=== PATIENT | female | born 1990 | race Hispanic/Latino ===

== ENCOUNTER 2022-05-15 13:20 | Emergency (ER) | payer BC ==
--- OUTSIDE RECORDS SUMMARY | 2022-05-15 13:30 | XMS REPORT | Continuity of Care Document ---
:1990 Author Organization [facility] t Address [address] [place] [address] Dr[address] Whipple [address] [place] [id number] Care Team Providers Name Role Phone Micheal CHRISTIANSON, Logan Go Primary Care Physician Kamille Barriga Attending Clinician [phone] KAMILLE MCKEON Attending Clinician Unavailable FIDELIA BEASLEY Attending Clinician Unavailable Fidelia Tesfaye Attending Clinician SHANNON VIDAL Attending Clinician Unavailable RYAN HARDIN Attending Clinician Unavailable Shannon Delgado Attending Clinician Visit, Dayron Nurse Attending Clinician Unavailable Jovanni Harper MD, Jose Luis Attending Clinician Joaquin Watkins MD Attending Clinician Amanda Hardin MD Attending Clinician Risk, Khc-Zcvmk-Ei/High Attending Clinician Unavailable Jillian Perez Attending Clinician Ultrasound, Tiburcio-Mfm Attending Clinician Unavailable Lab, TawannaRmchp Attending Clinician Unavailable Jasbir Stone MD, Shruthi Attending Clinician [phone] SHRUTHI TIRADO Attending Clinician Unavailable Thi Steele MD Attending Clinician Siomara Hernandez Attending Clinician Unavailable James Olivares MD Attending Clinician JAMES OLIVARES Attending Clinician Unavailable 1, [facility] Attending Clinician Unavailable Logan Burton MD Attending Clinician Payers Payer Name Policy Type Policy Number Effective Date Expiration Date S george [employer] - OUT [id number] 2017 OF [facility] 00:00:00 COMMERCIAL [id number] 2019 NON-CONTRACT 00:00:00 GENERIC Problems Condition Condition Condition Status Onset Resolution Last Treating Co mments Source Name Details Category Date Date Treatment Clinician Date Encounter Encounter Disease Active Uni vers for for 9-21 ity of surveillan surveillan 00:[place] ce of ce of 00 Medical contracept contracept Br anch sina pills sina pills Screen for Screen for Disease Active U nivers STD STD 921 ity of (sexually (sexually 00:[place] transmitte transmitte 00 Me dical d disease) d disease) Br anch History of History of Disease Active U nivers anemia anemia 9-21 ity of 00:00: [place] [facility] Disease Active U nivers anemia anemia 5-18 ity of 00:00: [place] [facility] Obesity Obesity Disease Active Univers (BMI (BMI 4-26 ity of 30-39.9) 30-39.9) 00:00: [place] [facility] Branch 39 weeks 39 weeks Disease Active Unive rs gestation gestation 4-26 ity of of of 00:00: [place] 00 [facility] Anemia of Anemia of Disease Active Uni vers mother in mother in 1-13 ity of , , 00:00[place] antepartum antepartum 00 Me dical Branch Abnormal Abnormal Disease Active 2019-04 Unive rs genetic genetic 1-13 ity of test test 00:00: [place] during during 00 Medical Bran ch History of History of Disease Active 2019-04 U nivers toxoplasmo toxoplasmo 1-12 it y of sis sis 00:00: [place] [facility] Urinary Urinary Disease Active 2019-04 Univers tract tract 0-22 ity of infection infection 00:00[place] in mother in mother 00 [facility] during during Branch first first trimester trimester of of BMI BMI Disease Active 2020-0 Univers 25.0-25.9, 25.0-25.9, 9-24 it y of adult adult 00:00: [place] [id number] Medical Branch History of History of Disease Active 2020-0 U nivers -24 ity of section, section, 00:00: [place] unknown unknown 00 Medical scar scar Branch Multiparit Multiparit Disease Active 2020-0 U nivers y y 01-06 ity of 00:00: [place] [address] Medical Branch Supervisio Supervisio Disease Active 2020-0 U nivers n of high n of high 01-06 ity of risk risk 00:00: [place] 00 Medi devora in third in third Branch trimester trimester BMI BMI Disease Active 2020-0 Univers 25.0-25.9, 25.0-25.9, 924 it y of adult adult 00:00: [address] Abnormal Abnormal Disease Active 2020-0 Unive rs urinalysis urinalysis 01-06 it y of 00:00: [place] [address] Medical Branch Nausea/vom Nausea/vom Disease Active 2020-0 U nivers iting in iting in 24 ity of 00:00: [address] Allergies, Adverse Reactions, Alerts Allergy Allergy Status Severity Reaction(s) Onset Inactive Treating Comm ents Source Name Type Date Date Clinician NO KNOWN Drug Active Univers ALLERGIE Class ity of S [facility] Social History Social Habit Start Date Stop Date Quantity Comments Source ASSERTION 2019-11-23 [facility] 00:00:00 [facility] Exposure to 2021-12-24 2022-01-03 Not sure [facility] SARS-CoV-2 00:00:00 13:14:00 [facility] (event) Branch Alcohol intake 2022-01-03 2022-01-03 Ex-drinker [facility] 00:00:00 00:00:00 (finding) [facility] Tobacco use and 2020-01-07 2020-01-07 Smokeless tobacco Un iversity of exposure 00:00:00 00:00:00 non-user [facility] Sex [birth year] At [birth year] Universit y of 00:00:00 00:00:00 [facility] Smoking Status Start Date Stop Date Source Never smoked tobacco [facility] Medications Ordered Filled Start Stop Current Ordering Indication Dosage Frequency Signature Comments Components Source Medication Medication Date Date Medication? Clinician (SIG) Name Name norgestimat Yes [id number] 1{tbl} Take 1 Univers e-ethinyl 9-21 tablet by ity o f estradioL 00:00: mouth [place] 0.18/0.215/ 00 daily. Medica l 0.25 mg-35 Branch mcg (28) tablet norgestimat 0 Yes [id number] 1{tbl} Take 1 Univers e-ethinyl 9-21 tablet by ity o f estradioL 00:00: mouth [place] 0.18/0.215/ 00 daily. Medica l 0.25 mg-35 Branch mcg (28) tablet norgestimat 2021-0 Yes [id number] 1{tbl} Take 1 Univers e-ethinyl 9-21 tablet by ity o f estradioL 00:00: mouth [place] 0.18/0.215/ 00 daily. Medica l 0.25 mg-35 Branch mcg (28) tablet norgestimat 2021-0 Yes [id number] 1{tbl} Take 1 Univers e-ethinyl 9-21 tablet by ity o f estradioL 00:00: mouth [place] 0.18/0.215/ 00 daily. Medica l 0.25 mg-35 Branch mcg (28) tablet norgestimat 0 Yes [id number] 1{tbl} Take 1 Univers e-ethinyl 9-21 tablet by ity o f estradioL 00:00: mouth [place] 0.18/0.215/ 00 daily. Medica l 0.25 mg-35 Branch mcg (28) tablet norethindro 0 Yes [id number] 1{tbl} Take 1 Univers ne 0.35 mg 6-08 tablet by ity of tablet 00:00: mouth [place] 00 daily. Medical Branch norethindro 2020-0 Yes [id number] 1{tbl} Take 1 Univers ne 0.35 mg 6-08 tablet by ity of tablet 00:00: mouth [place] 00 daily. Medical Branch norethindro 2020-0 Yes [id number] 1{tbl} Take 1 Univers ne 0.35 mg 6-08 tablet by ity of tablet 00:00: mouth [place] 00 daily. Medical Branch norethindro 2020-0 Yes [id number] 1{tbl} Take 1 Univers ne 0.35 mg 6-08 tablet by ity of tablet 00:00: mouth [place] 00 daily. Medical Branch norethindro 2021- No [id number] 1{tbl} Take 1 Univers ne 0.35 mg 6-08 -21 tablet by ity of tablet 00:00: 00:00 mouth [place] 00 :00 daily. Medical Branch norethindro 2021- No [id number] 1{tbl} Take 1 Univers ne 0.35 mg 6-08 -21 tablet by ity of tablet 00:00: 00:00 mouth [place] 00 :00 daily. Medical Branch norethindro 2021- No [id number] 1{tbl} Take 1 Univers ne 0.35 mg 6-08 - tablet by ity of tablet 00:00: 00:00 mouth [place] 00 :00 daily. Medical Branch norethindro 2021- No [id number] 1{tbl} Take 1 Univers ne 0.35 mg 6-08 - tablet by ity of tablet 00:00: 00:00 mouth [place] 00 :00 daily. Medical Branch FOLIC ACID 2020- No Take by Uni vers ORAL 5-18 05-18 mouth. ity of 18:43: 00:00 [place] 58 :00 Medical Branch FOLIC ACID Yes Take by [facility] ers ORAL 4-29 mouth. ity of 22:24: [place] 31 Medical Branch 2020- No Take by [facility] rs vit 4-29 04-29 mouth. ity of calc,iron,f 19:14: 00:00 [place] olic 26 :00 Medical ( Branch VITAMIN ORAL) FOLIC ACID Yes Take by [facility] ers ORAL 4-29 mouth. ity of 19:14: [place] 22 Medical Branch Yes [id number] 1{tbl} Take 1 Univers vitamin 4-29 tablet by ity of w/FA tablet 00:00: mouth [place] 00 daily. Medical Branch docusate Yes [id number] 240mg Take 1 U nivers calcium 240 4-29 capsule by it y of mg capsule 00:00: mouth [place] 00 daily as Medical needed for Branch Constipati on. ibuprofen Yes [id number] 600mg Take 1 Univers 600 mg 4-29 tablet by ity of tablet 00:00: mouth [place] 00 every 6 Medical (six) Branch hours as needed (Pain). Take with food or milk. Yes [id number] 1{tbl} Take 1 Univers vitamin 4-29 tablet by ity of w/FA tablet 00:00: mouth [place] 00 daily. Medical Branch docusate Yes [id number] 240mg Take 1 U nivers calcium 240 4-29 capsule by it y of mg capsule 00:00: mouth [place] 00 daily as Medical needed for Branch Constipati on. ibuprofen Yes [id number] 600mg Take 1 Univers 600 mg 4-29 tablet by ity of tablet 00:00: mouth [place] 00 every 6 Medical (six) Branch hours as needed (Pain). Take with food or milk. Yes [id number] 1{tbl} Take 1 Univers vitamin 4-29 tablet by ity of w/FA tablet 00:00: mouth [place] 00 daily. Medical Branch docusate Yes [id number] 240mg Take 1 U nivers calcium 240 4-29 capsule by it y of mg capsule 00:00: mouth [place] 00 daily as Medical needed for Branch Constipati on. ibuprofen Yes [id number] 600mg Take 1 Univers 600 mg 4-29 tablet by ity of tablet 00:00: mouth [place] 00 every 6 Medical (six) Branch hours as needed (Pain). Take with food or milk. Yes [id number] 1{tbl} Take 1 Univers vitamin 4-29 tablet by ity of w/FA tablet 00:00: mouth [place] 00 daily. Medical Branch Yes [id number] 1{tbl} Take 1 Univers vitamin 4-29 tablet by ity of w/FA tablet 00:00: mouth [place] 00 daily. Medical Branch Yes [id number] 1{tbl} Take 1 Univers vitamin 4-29 tablet by ity of w/FA tablet 00:00: mouth [place] 00 daily. Medical Branch Yes [id number] 1{tbl} Take 1 Univers vitamin 4-29 tablet by ity of w/FA tablet 00:00: mouth [place] 00 daily. Medical Branch 2021- No [id number] 1{tbl} Take 1 Univers vitamin 4-29 09-21 tablet by ity of w/FA tablet 00:00: 00:00 [place] 00 :00 daily. Medical Branch 2021- No [id number] 1{tbl} Take 1 Univers vitamin 4-29 09-21 tablet by ity of w/FA tablet 00:00: 00:00 [place] 00 :00 daily. Medical Branch 2021- No [id number] 1{tbl} Take 1 Univers vitamin 4-29 09-21 tablet by ity of w/FA tablet 00:00: 00:00 [place] 00 :00 daily. Medical Branch 2021- No [id number] 1{tbl} Take 1 Univers vitamin 4-29 09-21 tablet by ity of w/FA tablet 00:00: 00:00 [place] 00 :00 daily. [facility] Branch docusate No [id number] 240mg Take 1 Univers calcium 240 4- 06-08 capsule by i ty of mg capsule 00:00: 00:00 mouth once [place] 00 :00 daily as Medical needed for Branch Constipati on. ibuprofen 2020- No [id number] 600mg Take 1 Univers 600 mg 4- 06-08 tablet by ity of tablet 00:00: 00:00 mouth [place] 00 :00 every 6 Medical (six) Branch hours as needed (Pain). Take with food or milk. docusate No [id number] 240mg Take 1 Univers calcium 240 4-29 06-08 capsule by i ty of mg capsule 00:00: 00:00 mouth once [place] 00 :00 daily as Medical needed for Branch Constipati on. ibuprofen No [id number] 600mg Take 1 Univers 600 mg 4-29 06-08 tablet by ity of tablet 00:00: 00:00 mouth [place] 00 :00 every 6 Medical (six) Branch hours as needed (Pain). Take with food or milk. docusate No [id number] 240mg Take 1 Univers calcium 240 4-29 06-08 capsule by i ty of mg capsule 00:00: 00:00 mouth once [place] 00 :00 daily as Medical needed for Branch Constipati on. ibuprofen 2020- No [id number] 600mg Take 1 Univers 600 mg 08-11 tablet by ity of tablet 00:00: 00:00 mouth [place] 00 :00 every 6 Medical (six) Branch hours as needed (Pain). Take with food or milk. HYDROcodone 2020- No [id number] 1{tbl} Take 1 U nivers -acetaminop 08-11 tablet by it y of hen 5-325 00:00: 04:59 mouth [place] mg tablet 00 :00 every 6 Medical (six) Branch hours as needed (Pain scale above 4) for up to 7 days. Do not exceed 3 grams of acetaminop hen in 24 hours. Indication s: acute pain HYDROcodone 2020- No [id number] 1{tbl} Take 1 U nivers -acetaminop 08-11 tablet by it y of hen 5-325 00:00: 04:59 mouth [place] mg tablet 00 :00 every 6 Medical (six) Branch hours as needed (Pain scale above 4) for up to 7 days. Do not exceed 3 grams of acetaminop hen in 24 hours. Indication s: acute pain foLIC acid Yes 1mg 1 mg, Univer s (FOLATE) - Oral, ity of tablet 1 mg 14:00: DAILY, [place] 00 First dose Medical on Sat Branch 08/10/20 at 0900, Until Discontinu ed ferrous Yes 325mg 325 mg, Univer s sulfate - Oral, BID, ity of tablet 325 13:00: First dose [place] mg 00 on Sat Medical 08/10/20 at Branch 0800, Until Discontinu ed, Routine ascorbic Yes 500mg 500 mg, Unive rs acid 4- Oral, TID, ity of (vitamin C) 13:00: First dose [place] (VITAMIN C) 00 on Sat Medica l tablet 500 08/10/20 at [facility] mg 0800, Until Discontinu ed, Routine ibuprofen Yes 600mg 600 mg, Univ ers (IBU) 4- Oral, Q6H, ity of tablet 600 05:00: First dose [place] mg 00 on Sat Medical 08/10/20 at Branch 0000, Until Discontinu ed, Routine rho(D) Yes 300ug 300 mcg, Univer s immune 08-10 Intramuscu ity of globulin 03:50: lar, ONCE, [place] (RHOGAM) 21 For 1 Medical syringe 300 dose, Branch mcg Conditiona l, Routine HYDROcodone Yes 1{tbl} [Order 1 Univers -acetaminop 08-10 Start] ity of hen (NORCO 03:50: Name: [place] 5) 5-325 mg 12 HYDROcodon Me dical tablet 1 e-acetamin Branc h tablet ophen (NORCO 5) 5-325 mg tablet 1 tablet Signed Summary: 1 tablet, Oral, Q6HPRN, Starting Sat08/09/20 at 2250, Until Discontinu ed, Routine, Pain (scale 4-6) [Order 1 End] [Order 2 Start] Name: HYDROcodon e-acetamin ophen (NORCO) 10-325 mg tablet 1 tablet Signed Summary: 1 tablet, Oral, Q6HPRN, Starting Sat08/09/20 at 2250, Until Discontinu ed, Routine, Pain (scale 7-10) [Order 2 End] ondansetron Yes 4mg 4 mg, Slow Univers (ZOFRAN 08-10 IV Push, ity of (PF)) 03:50: Q8HPRN, [place] injection 4 11 Starting Medi devora mg e Branch 08/09/20 at 2250, Until Discontinu ed, Routine, Nausea and Vomiting (N/V) simethicone Yes 160mg 160 mg, Un analy (GAS RELIEF 08-10 Oral, ity of (SIMETHICON 03:50: PC+HSPRN, [place] E)) 11 Starting Medical chewable Tue Branch tablet 160 08/09/20 at mg 2250, Until Discontinu ed, Routine, Gas magnesium Yes 30mL 30 mL, Univer s hydroxide 08-10 Oral, ity of (MILK OF 03:50: QDAILYPRN, [place] MAGNESIA) 11 Starting Medica l 400 mg/5 mL Tue Branch suspension 4/27/21 at 30 mL 2250, Until Discontinu ed, Routine, Constipati on human 0 Yes .5mL 0.5 mL, Univers papillomav 08-10 Intramuscu ity of vac,9-tae(P 03:50: lar, [place] F) 10 ONCE-PRIOR Medical (GARDASIL-9 TO Branch ) syringe DISCHARGE, 0.5 mL 1 dose, Starting [facility] 08/09/20 at 2250, Until Discontinu ed, Routine, Give vaccine prior to discharge diphenhydrA Yes 25mg 25 mg, IV U nivers MINE-0.9 % 08-10 Piggyback, ity of sod.chlr 03:50: Administer Mci[place] as (BENADRYL) 10 over 30 Medica l 25 mg/50 mL Minutes, Bran ch piggyback Q6HPRN, 1 25 mg dose, Starting [facility] 08/09/20 at 2250, Until Discontinu ed, Routine, Itching diphenhydrA Yes 25mg 25 mg, Univ ers MINE 08-10 Oral, ity of (BENADRYL) 03:50: Q6HPRN, [place] tablet 25 10 Starting Medica l mg [facility] 08/09/20 at 2250, Until Discontinu ed, Routine, Sleep, Itching bisacodyL Yes 10mg 10 mg, Univer s (DULCOLAX) 08-10 Rectal, ity of suppository 03:50: QDAILYPRN, [place] 10 mg 10 Starting Medical [facility] 08/09/20 at 2250, Until Discontinu ed, Routine, Constipati on docusate Yes 240mg 240 mg, Unive rs calcium 08-10 Oral, ity of (SURFAK) 03:50: QDAILYPRN, [place] capsule 240 10 Starting Medi devora mg [facility] 08/09/20 at 2250, Until Discontinu ed, Routine, Constipati on morpHINE 30 0 Yes Univer s mg/30 mL 08-10 ity of (fixed 01:30: [place] dose) BEFORE [employer] 00 Medical injection Branch naloxone 0 Yes .1mg 0.1 mg, Univer s (NARCAN) 08-10 Slow IV ity of injection 00:21: Push, [place] 0.1 mg 37 SEE-INSTRU Medical CTIONS, Branch Starting 08/09/20 at 1921, Until Discontinu ed, Routine morpHINE 2 Yes Slow IV Univ ers mg/mL LOAD 08-10 Push, ity of & RESCUE 00:21: Routine [place] INJECTION 37 Medical SYRG Branch sugammadex 2020- No IV Push, Un analy (BRIDION) 08-09 ONCE INTRA ity of injection 23:07: 23:22 PROCEDURE, [place] 00 :15 Starting Medical [facility] Branch 08/09/20 at 1807, Until 08/09/20 at 1822, Routine, Intra-op ondansetron Yes 4mg 4 mg, Slow Univers (ZOFRAN 08-09 IV Push, ity of (PF)) 23:05: PRN, [place] injection 4 31 Starting Medi devora mg [facility] Branch 08/09/20 at 1805, Until Discontinu ed, Routine, Nausea and Vomiting (N/V), PACU naloxone 2020- No .4mg 0.4 mg, Unive rs (NARCAN) 08-09 Slow IV ity of injection 23:05: 23:04 [place], PRN [place] 0.4 mg 31 :31 - SEE Medical INSTRUCTIO Branch NS, Starting Sat08/09/20 at 1805, Until Jennifer 08/11/20 at 1804, Routine, Analgesia Recovery, PACU ondansetron 2020- No Slow IV Un analy (ZOFRAN 08-09 Push, ONCE ity o f (PF)) 22:53: 23:22 INTRA [place] injection 00 :15 PROCEDURE, Medi devora Starting Branch 08/09/20 at 1753, Until Sat08/09/20 at 1822, Routine, Intra-op morpHINE PF 2020- No Epidural, Univers (DURAMORPH- 08-09 ONCE INTRA i ty of PF) 22:49: 23:22 PROCEDURE, [place] injection 00 :15 Starting Medica l [facility] Branch 08/09/20 at 1749, Until Sat08/09/20 at 1822, Routine, Intra-op oxytocin 2020- No Intramuscu Un analy (PITOCIN) 08-09 lar, ONCE ity of injection 22:32: 23:22 INTRA [place] 00 :15 PROCEDURE, Medical Starting Branch [facility] 08/09/20 at 1732, Until 08/09/20 at 1822, Routine, Intra-op carboprost 2020- No Intramuscu Univers (HEMABATE) 08-09 lar, ONCE ity of injection 22:29: 23:22 INTRA [place] 00 :15 PROCEDURE, Medical Starting Branch [facility] 08/09/20 at 1729, Until Sat08/09/20 at 1822, Routine, Intra-op rocuronium 2020- No IV Push, Un analy (ZEMURON) 08-09 ONCE INTRA ity of injection 22:28: 23:22 PROCEDURE, [place] 00 :15 Starting [facility] 08/09/20 at 1728, Until Sat08/09/20 at 1822, Routine, Intra-op methylergon 2020- No Intramuscu Univers ovine 08-09 lar, ONCE ity of (METHERGINE 22:24: 23:22 [place]TRA [place] ) injection 00 :15 PROCEDURE, Me dical Starting Branch [facility] 08/09/20 at 1724, Until Sat08/09/20 at 1822, Routine, Intra-op FENTanyl PF 2020- No Slow IV Un analy (SUBLIMAZE 08-09 Push, ONCE it y of (PF)) 22:24: 23:22 INTRA [place] injection 00 :15 PROCEDURE, [facility] devora Starting Branch [facility] 08/09/20 at 1724, Until Sat08/09/20 at 1822, Routine, Intra-op phenylephri 2020- No Intravenou Univers ne 08-09 s, ONCE ity of (VAZCULEP) 22:23: 23:22 INTRA [place] injection 00 :15 PROCEDURE, [facility] devora Starting Branch [facility] 08/09/20 at 1723, Until Sat08/09/20 at 1822, Routine, Intra-op LR 1000 mL 2020- No IV Univer s + oxytocin 08-09 Infusion, ity of 40 units 40 22:22: 23:22 CONTINUOUS [place] unit/ 1,000 00 :15 PRN, Medical mL IV Starting Branch Solution e 08/09/20 at 1722, Until Sat08/09/20 at 1822, Routine, Intra-op succinylcho 2020- No IV Push, U nivers line 08-09 ONCE INTRA ity of (QUELICIN) 22:19: 23:22 PROCEDURE, [place] injection 00 :15 Starting Medica l [facility] Branch 08/09/20 at 1719, Until Sat08/09/20 at 1822, Routine, Intra-op propofoL IV 2020- No Slow IV Un analy infusion 08-09 Push, ONCE ity of 22:19: 23:22 INTRA [place] 00 :15 PROCEDURE, Medical Starting Branch Sat08/09/20 at 1719, Until Sat08/09/20 at 182, Routine, Intra-op FOLIC ACID Yes Take by [facility] ers ORAL 08-09 mouth. ity of 22:07: [address] Branch Yes Take by [facility] s vit 08-09 mouth. ity of calc,iron,f 22:07: [address] ( Branch VITAMIN ORAL) phenylephri 2020- No Intravenou Univers ne 08-09 s, ity of (VAZCULEP) 22:00: 23:22 CONTINUOUS [place] injection 00 :15 PRN, Medical Starting Branch Sat08/09/20 at 1700, Until Sat08/09/20 at 1822, Routine, Intra-op lactated 2020- No IV Univers ringers IV 08-09 Infusion, ity of infusion 22:00: 23:22 CONTINUOUS [place] 00 :15 PRN, Medical Starting Branch Sat08/09/20 at 1700, Until Sat08/09/20 at 1822, Routine, Intra-op lidocaine 2020- No Epidural, Un analy 2% + 08-09 CONTINUOUS ity of epinephrine 21:56: 23:22 PRN, [place] 1:1000 + 00 :15 Starting Medical fentanyl 50 Tue Branch mcg/mL + 08/09/20 at sodium 1656, bicarb 8.4% Until Sat08/09/20 at 1822, Routine, Intra-op FENTanyl 2 2020- No Intra-op Un analy mcg/mL + 08-09 ity of bupivacaine 18:16: 23:22 [place] 0.1% in NS 00 :15 Medical 250 mL Branch epidural bag FENTanyl 2 2020- No Intra-op Un analy mcg/mL + 08-09 ity of bupivacaine 04:48: 23:22 [place] 0.1% in NS 00 :15 Medical 250 mL Branch epidural bag lidocaine-e 2020- No Intraderma Univers pinephrine 08-09 l, ONCE ity o f (XYLOCAINE 04:42: 23:22 INTRA [place] W/EPINEPHRI 00 :15 PROCEDURE, Pa dical NE) 1.5 Starting Branch %-1:200,000 Mon injection 08/08/20 at 2342, Until 08/09/20 at 1822, Routine, Intra-op FOLIC ACID Yes Take by Univ ers ORAL 4-19 mouth. ity of 15:02: [place] [address] Medical Branch Yes Take by Univer s vit 4-19 mouth. ity of calc,iron,f 15:02: [place] [address] Medical ( Branch VITAMIN ORAL) FOLIC ACID Yes Take by Univ ers ORAL 4-19 mouth. ity of 15:02: [place] [address] Medical Branch Yes Take by Univer s vit 4-19 mouth. ity of calc,iron,f 15:02: [place] [address] Medical ( Branch VITAMIN ORAL) FOLIC ACID Yes Take by Univ ers ORAL 4-19 mouth. ity of 15:02: [place] [address] Medical Branch Yes Take by Univer s vit 4-19 mouth. ity of calc,iron,f 15:02: [facility] 05 Medical ( Branch VITAMIN ORAL) Yes Take by Univer s vit 4-15 mouth. ity of calc,iron,f 15:37: [facility] 12 Medical ( Branch VITAMIN ORAL) Yes Take by Univer s vit 4-05 mouth. ity of calc,iron,f 14:27: [facility] 23 Medical ( Branch VITAMIN ORAL) Yes Take by Univer s vit 4-05 mouth. ity of calc,iron,f 14:27: [place] [address] Medical ( Branch VITAMIN ORAL) Yes Take by Univer s vit 4-05 mouth. ity of calc,iron,f 14:27: [place] [address] Medical ( Branch VITAMIN ORAL) Yes Take by Univer s vit 4-05 mouth. ity of calc,iron,f 14:27: [place] [address] Medical ( Branch VITAMIN ORAL) Yes Take by Univer s vit 4-05 mouth. ity of calc,iron,f 14:27: [place] [address] Medical ( Branch VITAMIN ORAL) Yes Take by Univer s vit 4-05 mouth. ity of calc,iron,f 14:27: [place] [address] Medical ( Branch VITAMIN ORAL) Yes Take by Univer s vit 4-05 mouth. ity of calc,iron,f 14:27: [place] [address] Medical ( Branch VITAMIN ORAL) Yes Take by Univer s vit 4-05 mouth. ity of calc,iron,f 14:27: [place] [id number] Medical ( Branch VITAMIN ORAL) Yes Take by Univer s vit 4-01 mouth. ity of calc,iron,f 15:06: [place] [id number] Medical ( Branch VITAMIN ORAL) Yes Take by Univer s vit 3-22 mouth. ity of calc,iron,f 15:12: [place] [address] Medical ( Branch VITAMIN ORAL) Yes Take by Univer s vit 3-22 mouth. ity of calc,iron,f 15:12: [place] [address] Medical ( Branch VITAMIN ORAL) Yes Take by Univer s vit 3-22 mouth. ity of calc,iron,f 15:12: [place] [address] Medical ( Branch VITAMIN ORAL) Yes Take by Univer s vit 3-22 mouth. ity of calc,iron,f 15:12: [place] [address] Medical ( Branch VITAMIN ORAL) Yes Take by Univer s vit 3-18 mouth. ity of calc,iron,f 14:59: [place] olic 38 Medical ( Branch VITAMIN ORAL) 0 Yes Take by Univer s vit 3-15 mouth. ity of calc,iron,f 14:02: [place] olic 06 Medical ( Branch VITAMIN ORAL) 0 Yes Take by Univer s vit 3-11 mouth. ity of calc,iron,f 18:40: [place] olic 08 Medical ( Branch VITAMIN ORAL) 0 Yes Take by Univer s vit 3-08 mouth. ity of calc,iron,f 15:47: [place] olic 59 Medical ( Branch VITAMIN ORAL) 0 Yes Take by Univer s vit 3-08 mouth. ity of calc,iron,f 15:47: [place] ol 59 Medical ( Branch VITAMIN ORAL) FOLIC ACID 0 Yes Take by Univ ers ORAL 2-23 mouth. ity of 16:33: [place] [address] Medical Branch FOLIC ACID 0 Yes Take by Univ ers ORAL 2-23 mouth. ity of 16:33: [place] [address] Medical Branch FOLIC ACID 0 Yes Take by Univ ers ORAL 2-23 mouth. ity of 16:33: [place] [place] [address] [facility] FOLIC ACID 0 Yes Take by [facility] ORAL 2-23 mouth. ity of 16:33: [place] [address] [facility] FOLIC ACID 0 Yes Take by [facility] ORAL 2-23 mouth. ity of 16:33: [place] [address] [facility] FOLIC ACID 0 Yes Take by [facility] ORAL 2-23 mouth. ity of 16:33: [place] [address] [facility] FOLIC ACID 0 Yes Take by [facility] ORAL 2-23 mouth. ity of 16:33: [place] [address] [facility] FOLIC ACID 0 Yes Take by [facility] ORAL 2-23 mouth. ity of 16:33: [place] [address] [facility] FOLIC ACID 0 Yes Take by [facility] ORAL 2-23 mouth. ity of 16:33: [place] [address] [facility] FOLIC ACID 0 Yes Take by [facility] ORAL 2-23 mouth. ity of 16:33: [place] [address] [facility] FOLIC ACID 2020-0 Yes Take by [facility] ORAL 2-23 mouth. ity of 16:33: [place] [address] [facility] FOLIC ACID 2020-0 Yes Take by [facility] ORAL 2-23 mouth. ity of 16:33: [address] FOLIC ACID Yes Take by [facility] ORAL 2-23 mouth. ity of 16:33: [address] FOLIC ACID Yes Take by [facility] ORAL 2-23 mouth. ity of 16:33: [address] FOLIC ACID Yes Take by [facility] ORAL 2-23 mouth. ity of 16:33: [address] FOLIC ACID Yes Take by [facility] ORAL 2-23 mouth. ity of 16:33: [address] FOLIC ACID Yes Take by [facility] ORAL 2-23 mouth. ity of 16:33: [address] FOLIC ACID Yes Take by [facility] ORAL 2-23 mouth. ity of 16:33: [address] FOLIC ACID Yes Take by [facility] ers ORAL 2-23 mouth. ity of 16:33: [address] FOLIC ACID Yes Take by [facility] ers ORAL 2-23 mouth. ity of 16:33: [address] Yes Take by [facility] vit 2-23 mouth. ity of calc,iron,f 16:33: [address] ( Branch VITAMIN ORAL) ferrous 2020-0 Yes [id number] 325mg Take 1 Un analy sulfate 325 1-13 tablet by ity of mg (65 mg 00:00: mouth 2 [place] iron) 00 (two) Medical tablet times Branch daily. ascorbic 2020-0 Yes [id number] 500mg Take 1 [facility] n[facility] acid, 1-13 tablet by [facility] vitamin C, 00:00: mouth [place] 00 (three) Medical tablet times Branch daily. ferrous 2020-0 Yes [id number] 325mg Take 1 Un analy sulfate 325 1-13 tablet by ity of mg (65 mg 00:00: mouth 2 [place] iron) 00 (two) Medical tablet times Branch daily. ascorbic 202-0 Yes [id number] 500mg Take 1 [facility] acid, 1-13 tablet by [facility] vitamin C, 00:00: mouth [place] 00 (three) Medical tablet times Branch daily. ferrous 2020-0 Yes [id number] 325mg Take 1 Un analy sulfate 325 1-13 tablet by ity of mg (65 mg 00:00: mouth 2 [place] iron) 00 (two) Medical tablet times Branch daily. ascorbic Yes [id number] 500mg Take 1 [facility] n[facility] acid, 1-13 tablet by [facility] of vitamin C, 00:00: mouth [place] 00 (three) Medical tablet times Branch daily. ferrous Yes [id number] 325mg Take 1 Un analy sulfate 325 1-13 tablet by ity of mg (65 mg 00:00: mouth 2 [place] iron) 00 (two) Medical tablet times Branch daily. ascorbic Yes [id number] 500mg Take 1 [facility] acid, 1-13 tablet by [facility] of vitamin C, 00:00: mouth [place] 500 [place] 00 (three) Medical tablet times Branch daily. ferrous Yes [id number] 325mg Take 1 Un analy sulfate 325 1-13 tablet by ity of mg (65 mg 00:00: mouth 2 [place] iron) 00 (two) Medical tablet times Branch daily. ascorbic Yes [id number] 500mg Take 1 [facility] acid, 1-13 tablet by [facility] of vitamin C, 00:00: mouth [place] 00 (three) Medical tablet times Branch daily. ferrous Yes [id number] 325mg Take 1 Un analy sulfate 325 1-13 tablet by ity of mg (65 mg 00:00: mouth 2 [place] iron) 00 (two) Medical tablet times Branch daily. ascorbic Yes [id number] 500mg Take 1 [facility] acid, 1-13 tablet by [facility] of vitamin C, 00:00: mouth [place] 00 (three) Medical tablet times Branch daily. ferrous Yes [id number] 325mg Take 1 Un analy sulfate 325 1-13 tablet by ity of mg (65 mg 00:00: mouth 2 [place] iron) 00 (two) Medical tablet times Branch daily. ascorbic Yes [id number] 500mg Take 1 [facility] acid, 1-13 tablet by [facility] of vitamin C, 00:00: mouth [place] 500 [place] 00 (three) Medical tablet times Branch daily. ferrous Yes [id number] 325mg Take 1 Un analy sulfate 325 1-13 tablet by ity of mg (65 mg 00:00: mouth 2 [place] iron) 00 (two) Medical tablet times Branch daily. ascorbic Yes [id number] 500mg Take 1 [facility] nivers acid, 1-13 tablet by [facility] of vitamin C, 00:00: mouth [place] 500 [place] 00 (three) Medical tablet times Branch daily. ferrous Yes [id number] 325mg Take 1 Un analy sulfate 325 1-13 tablet by ity of mg (65 mg 00:00: mouth 2 [place] iron) 00 (two) Medical tablet times Branch daily. ascorbic Yes [id number] 500mg Take 1 [facility]ivers acid, 1-13 tablet by [facility] of vitamin C, 00:00: mouth [place] 500 [place] 00 (three) Medical tablet times Branch daily. ferrous Yes [id number] 325mg Take 1 Un analy sulfate 325 1-13 tablet by ity of mg (65 mg 00:00: mouth 2 [place] iron) 00 (two) Medical tablet times Branch daily. ascorbic Yes [id number] 500mg Take 1 [facility]ivers acid, 1-13 tablet by [facility] of vitamin C, 00:00: mouth [place] 500 [place] 00 (three) Medical tablet times Branch daily. ferrous Yes [id number] 325mg Take 1 Un analy sulfate 325 1-13 tablet by ity of mg (65 mg 00:00: mouth 2 [place] iron) 00 (two) Medical tablet times Branch daily. ascorbic Yes [id number] 500mg Take 1 [facility] nivers acid, 1-13 tablet by [facility] of vitamin C, 00:00: mouth [place] 500 [place] 00 (three) Medical tablet times Branch daily. ferrous Yes [id number] 325mg Take 1 Un analy sulfate 325 1-13 tablet by ity of mg (65 mg 00:00: mouth 2 [place] iron) 00 (two) Medical tablet times Branch daily. ascorbic Yes [id number] 500mg Take 1 [facility] nivers acid, 1-13 tablet by [facility] of vitamin C, 00:00: mouth [place] 500 [place] 00 (three) Medical tablet times Branch daily. ferrous Yes [id number] 325mg Take 1 Un analy sulfate 325 1-13 tablet by ity of mg (65 mg 00:00: mouth 2 [place] iron) 00 (two) Medical tablet times Branch daily. ascorbic Yes [id number] 500mg Take 1 [facility] acid, 1-13 tablet by [facility] of vitamin C, 00:00: mouth [place] 500 [place] 00 (three) Medical tablet times Branch daily. ferrous Yes [id number] 325mg Take 1 Un analy sulfate 325 1-13 tablet by ity of mg (65 mg 00:00: mouth 2 [place] iron) 00 (two) Medical tablet times Branch daily. ascorbic Yes [id number] 500mg Take 1 [facility] nivers acid, 1-13 tablet by it[facility] of vitamin C, 00:00: mouth [place] 500 [place] 00 (three) Medical tablet times Branch daily. ferrous Yes [id number] 325mg Take 1 Un analy sulfate 325 1-13 tablet by ity of mg (65 mg 00:00: mouth 2 [place] iron) 00 (two) Medical tablet times Branch daily. ascorbic Yes [id number] 500mg Take 1 [facility] nivers acid, 1-13 tablet by [facility] of vitamin C, 00:00: mouth [place] 00 (three) Medical tablet times Branch daily. ferrous Yes [id number] 325mg Take 1 Un analy sulfate 325 1-13 tablet by ity of mg (65 mg 00:00: mouth 2 [place] iron) 00 (two) Medical tablet times Branch daily. ascorbic Yes [id number] 500mg Take 1 [facility] nivers acid, 1-13 tablet by it[facility] of vitamin C, 00:00: mouth 3 [place] 500 [place] 00 (three) Medical tablet times Branch daily. ferrous Yes [id number] 325mg Take 1 Un analy sulfate 325 1-13 tablet by ity of mg (65 mg 00:00: mouth 2 [place] iron) 00 (two) Medical tablet times Branch daily. ascorbic Yes [id number] 500mg Take 1 [facility] nivers acid, 1-13 tablet by ity of vitamin C, 00:00: mouth 3 [place] 00 (three) Medical tablet times Branch daily. ferrous Yes [id number] 325mg Take 1 Un analy sulfate 325 1-13 tablet by ity of mg (65 mg 00:00: mouth 2 [place] iron) 00 (two) Medical tablet times Branch daily. ascorbic Yes [id number] 500mg Take 1 [facility] nivers acid, 1-13 tablet by it[facility] of vitamin C, 00:00: mouth 3 [place] 500 [place] 00 (three) Medical tablet times Branch daily. ferrous Yes [id number] 325mg Take 1 Un analy sulfate 325 1-13 tablet by ity of mg (65 mg 00:00: mouth 2 [place] iron) 00 (two) Medical tablet times Branch daily. ascorbic Yes [id number] 500mg Take 1 [facility] nivers acid, 1-13 tablet by it[facility] of vitamin C, 00:00: mouth 3 [place] 500 [place] 00 (three) Medical tablet times Branch daily. ferrous Yes [id number] 325mg Take 1 Un analy sulfate 325 1-13 tablet by ity of mg (65 mg 00:00: mouth 2 [place] iron) 00 (two) Medical tablet times Branch daily. ascorbic Yes [id number] 500mg Take 1 [facility] nivers acid, 1-13 tablet by it[facility] of vitamin C, 00:00: mouth 3 [place] 500 [place] 00 (three) Medical tablet times Branch daily. ferrous Yes [id number] 325mg Take 1 Un analy sulfate 325 1-13 tablet by ity of mg (65 mg 00:00: mouth 2 [place] iron) 00 (two) Medical tablet times Branch daily. ascorbic Yes [id number] 500mg Take 1 [facility] nivers acid, 1-13 tablet by it[facility] of vitamin C, 00:00: mouth 3 [place] 500 [place] 00 (three) Medical tablet times Branch daily. ferrous Yes [id number] 325mg Take 1 Un analy sulfate 325 1-13 tablet by ity of mg (65 mg 00:00: mouth 2 [place] iron) 00 (two) Medical tablet times Branch daily. ascorbic Yes [id number] 500mg Take 1 [facility] nivers acid, 1-13 tablet by ity of vitamin C, 00:00: mouth [place] 500 [place] 00 (three) Medical tablet times Branch daily. ferrous Yes [id number] 325mg Take 1 Un analy sulfate 325 1-13 tablet by ity of mg (65 mg 00:00: mouth 2 [place] iron) 00 (two) Medical tablet times Branch daily. ascorbic Yes [id number] 500mg Take 1 [facility] nivers acid, 1-13 tablet by ity of vitamin C, 00:00: mouth 3 [place] 500 [place] 00 (three) Medical tablet times Branch daily. ferrous Yes [id number] 325mg Take 1 Un analy sulfate 325 1-13 tablet by ity of mg (65 mg 00:00: mouth 2 [place] iron) 00 (two) Medical tablet times Branch daily. ascorbic Yes [id number] 500mg Take 1 [facility] nivers acid, 1-13 tablet by ity of vitamin C, 00:00: mouth 3 [place] 500 mg 00 (three) Medical tablet times Branch daily. ferrous Yes [id number] 325mg Take 1 Un analy sulfate 325 1-13 tablet by ity of mg (65 mg 00:00: mouth 2 [place] iron) 00 (two) Medical tablet times Branch daily. ascorbic Yes [id number] 500mg Take 1 [facility] nivers acid, 1-13 tablet by ity of vitamin C, 00:00: mouth 3 [place] 500 mg 00 (three) Medical tablet times Branch daily. ferrous Yes [id number] 325mg Take 1 Un analy sulfate 325 1-13 tablet by ity of mg (65 mg 00:00: mouth 2 [place] iron) 00 (two) Medical tablet times Branch daily. ascorbic Yes [id number] 500mg Take 1 U nivers acid, 1-13 tablet by ity of vitamin C, 00:00: mouth 3 [place] 500 [place] 00 (three) Medical tablet times Branch daily. ferrous Yes [id number] 325mg Take 1 Un analy sulfate 325 1-13 tablet by ity of mg (65 mg 00:00: mouth 2 [place] iron) 00 (two) Medical tablet times Branch daily. ascorbic Yes [id number] 500mg Take 1 U nivers acid, 1-13 tablet by ity of vitamin C, 00:00: mouth 3 [place] 500 mg 00 (three) Medical tablet times Branch daily. ferrous Yes [id number] 325mg Take 1 Un analy sulfate 325 1-13 tablet by ity of mg (65 mg 00:00: mouth 2 [place] iron) 00 (two) Medical tablet times Branch daily. ascorbic Yes [id number] 500mg Take 1 U nivers acid, 1-13 tablet by ity of vitamin C, 00:00: mouth 3 [place] 500 mg 00 (three) Medical tablet times Branch daily. ferrous Yes [id number] 325mg Take 1 Un analy sulfate 325 1-13 tablet by ity of mg (65 mg 00:00: mouth 2 [place] iron) 00 (two) Medical tablet times Branch daily. ascorbic Yes [id number] 500mg Take 1 [facility] nivers acid, 1-13 tablet by ity of vitamin C, 00:00: mouth 3 [place] 500 mg 00 (three) Medical tablet times Branch daily. ferrous Yes [id number] 325mg Take 1 Un analy sulfate 325 1-13 tablet by ity of mg (65 mg 00:00: mouth 2 [place] iron) 00 (two) Medical tablet times Branch daily. ascorbic Yes [id number] 500mg Take 1 U nivers acid, 1-13 tablet by ity of vitamin C, 00:00: mouth 3 [place] 500 mg 00 (three) Medical tablet times Branch daily. ferrous Yes [id number] 325mg Take 1 Un analy sulfate 325 1-13 tablet by ity of mg (65 mg 00:00: mouth 2 [place] iron) 00 (two) Medical tablet times Branch daily. ascorbic Yes [id number] 500mg Take 1 [facility] nivers acid, 1-13 tablet by ity of vitamin C, 00:00: mouth 3 [place] 500 mg 00 (three) Medical tablet times Branch daily. ferrous Yes [id number] 325mg Take 1 Un analy sulfate 325 1-13 tablet by ity of mg (65 mg 00:00: mouth 2 [place] iron) 00 (two) Medical tablet times Branch daily. ascorbic Yes [id number] 500mg Take 1 [facility] nivers acid, 1-13 tablet by ity of vitamin C, 00:00: mouth 3 [place] 500 mg 00 (three) Medical tablet times Branch daily. ferrous 2022- No [id number] 325mg Take 1 U nivers sulfate 325 1-13 09-21 tablet by it y of mg (65 mg 00:00: 00:00 mouth 2 [place] iron) 00 :00 (two) Medical tablet times Branch daily. ascorbic 2021- No [id number] 500mg Take 1 [facility] acid, 04-27 tablet by ity of vitamin C, 00:00: 00:00 mouth 3 [place] 500 mg 00 :00 (three) Medical tablet times Branch daily. ferrous 2021- No [id number] 325mg Take 1 U nivers sulfate 325 04-27 tablet by it y of mg (65 mg 00:00: 00:00 mouth 2 [place] iron) 00 :00 (two) Medical tablet times Branch daily. ascorbic 2021- No [id number] 500mg Take 1 [facility] acid, 04-27 tablet by ity of vitamin C, 00:00: 00:00 mouth 3 [place] 500 mg 00 :00 (three) Medical tablet times Branch daily. ferrous 2021- No [id number] 325mg Take 1 U nivers sulfate 325 04-27 tablet by it y of mg (65 mg 00:00: 00:00 mouth 2 [place] iron) 00 :00 (two) Medical tablet times Branch daily. ascorbic 2021- No [id number] 500mg Take 1 [facility] acid, 04-27 tablet by ity of vitamin C, 00:00: 00:00 mouth 3 [place] 500 mg 00 :00 (three) Medical tablet times Branch daily. ferrous 2021- No [id number] 325mg Take 1 U nivers sulfate 325 04-27 tablet by it y of mg (65 mg 00:00: 00:00 mouth 2 [place] iron) 00 :00 (two) Medical tablet times Branch daily. ascorbic 2021- No [id number] 500mg Take 1 [facility] acid, 04-27 tablet by ity of vitamin C, 00:00: 00:00 mouth 3 [place] 500 mg 00 :00 (three) Medical tablet times Branch daily. Yes Take by [employer] vit 1-12 mouth. ity of calc,iron,f 15:39: [place] [address] [facility] ( Branch VITAMIN ORAL) Yes Take by [employer] [facility] vit 1-12 mouth. ity of calc,iron,f 15:39: [place] [address] Medical ( Branch VITAMIN ORAL) Yes Take by [facility] vit 1-12 mouth. ity of calc,iron,f 15:39: [place] [address] Medical ( Branch VITAMIN ORAL) Yes Take by [facility] s vit 1-12 mouth. ity of calc,iron,f 15:39: [place] [address] Medical ( Branch VITAMIN ORAL) proMETHazin Yes [id number] 25mg Take 1 Univers e 25 mg 1-12 tablet by ity of tablet 00:00: mouth [place] 00 every 4 Medical (four) Branch hours as needed for Nausea and Vomiting (N/V). proMETHazin Yes [id number] 25mg Take 1 [facility] e 25 mg 1-12 tablet by ity of tablet 00:00: mouth [place] 00 every 4 Medical (four) Branch hours as needed for Nausea and Vomiting (N/V). proMETHazin Yes [id number] 25mg Take 1 [facility] e 25 mg 1-12 tablet by ity of tablet 00:00: mouth [place] 00 every 4 Medical (four) Branch hours as needed for Nausea and Vomiting (N/V). proMETHazin Yes [id number] 25mg Take 1 [facility] e 25 mg 1-12 tablet by ity of tablet 00:00: mouth [place] 00 every 4 Medical (four) Branch hours as needed for Nausea and Vomiting (N/V). proMETHazin Yes [id number] 25mg Take 1 [facility] e 25 mg 1-12 tablet by ity of tablet 00:00: mouth [place] 00 every 4 Medical (four) Branch hours as needed for Nausea and Vomiting (N/V). proMETHazin Yes [id number] 25mg Take 1 [facility] e 25 mg 1-12 tablet by ity of tablet 00:00: mouth [place] 00 every 4 Medical (four) Branch hours as needed for Nausea and Vomiting (N/V). proMETHazin 0 Yes [id number] 25mg Take 1 [facility] e 25 mg 1-12 tablet by ity of tablet 00:00: mouth [place] 00 every 4 Medical (four) Branch hours as needed for Nausea and Vomiting (N/V). proMETHazin 0 Yes [id number] 25mg Take 1 [facility] e 25 mg 1-12 tablet by ity of tablet 00:00: mouth [place] 00 every 4 Medical (four) Branch hours as needed for Nausea and Vomiting (N/V). proMETHazin 2020-0 Yes [id number] 25mg Take 1 [facility] e 25 mg 1-12 tablet by ity of tablet 00:00: mouth [place] 00 every 4 Medical (four) Branch hours as needed for Nausea and Vomiting (N/V). proMETHazin 2020-0 Yes [id number] 25mg Take 1 [facility] e 25 mg 1-12 tablet by ity of tablet 00:00: mouth [place] 00 every 4 Medical (four) Branch hours as needed for Nausea and Vomiting (N/V). proMETHazin 2020-0 Yes [id number] 25mg Take 1 [facility] e 25 mg 1-12 tablet by ity of tablet 00:00: mouth [place] 00 every 4 Medical (four) Branch hours as needed for Nausea and Vomiting (N/V). proMETHazin 2020-0 Yes [id number] 25mg Take 1 [facility] e 25 mg 1-12 tablet by ity of tablet 00:00: mouth [place] 00 every 4 Medical (four) Branch hours as needed for Nausea and Vomiting (N/V). proMETHazin 2020-0 Yes [id number] 25mg Take 1 [facility] e 25 mg 1-12 tablet by ity of tablet 00:00: mouth [place] 00 every 4 Medical (four) Branch hours as needed for Nausea and Vomiting (N/V). proMETHazin 2020-0 Yes [id number] 25mg Take 1 [facility] e 25 mg 1-12 tablet by ity of tablet 00:00: mouth [place] 00 every 4 Medical (four) Branch hours as needed for Nausea and Vomiting (N/V). proMETHazin 2020-0 Yes [id number] 25mg Take 1 [facility] e 25 mg 1-12 tablet by ity of tablet 00:00: mouth [place] 00 every 4 Medical (four) Branch hours as needed for Nausea and Vomiting (N/V). proMETHazin 2020-0 Yes [id number] 25mg Take 1 Univers e 25 mg 1-12 tablet by ity of tablet 00:00: mouth [place] 00 every 4 Medical (four) Branch hours as needed for Nausea and Vomiting (N/V). proMETHazin 2020-0 Yes [id number] 25mg Take 1 [facility] e 25 mg 1-12 tablet by ity of tablet 00:00: mouth [place] 00 every 4 Medical (four) Branch hours as needed for Nausea and Vomiting (N/V). proMETHazin 2020-0 Yes [id number] 25mg Take 1 Univers e 25 mg 1-12 tablet by ity of tablet 00:00: mouth [place] 00 every 4 Medical (four) Branch hours as needed for Nausea and Vomiting (N/V). proMETHazin 2020-0 Yes [id number] 25mg Take 1 Univers e 25 mg 1-12 tablet by ity of tablet 00:00: mouth [place] 00 every 4 Medical (four) Branch hours as needed for Nausea and Vomiting (N/V). proMETHazin 2020-0 Yes [id number] 25mg Take 1 Univers e 25 mg 1-12 tablet by ity of tablet 00:00: mouth [place] 00 every 4 Medical (four) Branch hours as needed for Nausea and Vomiting (N/V). proMETHazin 2020-0 Yes [id number] 25mg Take 1 Univers e 25 mg 1-12 tablet by ity of tablet 00:00: mouth [place] 00 every 4 Medical (four) Branch hours as needed for Nausea and Vomiting (N/V). proMETHazin 2020-0 Yes [id number] 25mg Take 1 Univers e 25 mg 1-12 tablet by ity of tablet 00:00: mouth [place] 00 every 4 Medical (four) Branch hours as needed for Nausea and Vomiting (N/V). proMETHazin 2020-0 Yes [id number] 25mg Take 1 [facility] e 25 mg 1-12 tablet by ity of tablet 00:00: mouth [place] 00 every 4 Medical (four) Branch hours as needed for Nausea and Vomiting (N/V). proMETHazin 2020-0 Yes [id number] 25mg Take 1 [facility] e 25 mg 1-12 tablet by ity of tablet 00:00: mouth [place] 00 every 4 Medical (four) Branch hours as needed for Nausea and Vomiting (N/V). proMETHazin 1-0 Yes [id number] 25mg Take 1 [facility] e 25 mg 1-12 tablet by ity of tablet 00:00: mouth [place] 00 every 4 Medical (four) Branch hours as needed for Nausea and Vomiting (N/V). proMETHazin 2020-0 Yes [id number] 25mg Take 1 Univers e 25 mg 1-12 tablet by ity of tablet 00:00: mouth [place] 00 every 4 Medical (four) Branch hours as needed for Nausea and Vomiting (N/V). proMETHazin Yes [id number] 25mg Take 1 Univers e 25 mg 1-12 tablet by ity of tablet 00:00: mouth [place] 00 every 4 Medical (four) Branch hours as needed for Nausea and Vomiting (N/V). proMETHazin Yes [id number] 25mg Take 1 Univers e 25 mg 1-12 tablet by ity of tablet 00:00: mouth [place] 00 every 4 Medical (four) Branch hours as needed for Nausea and Vomiting (N/V). proMETHazin 2020- No [id number] 25mg Take 1 Univers e 25 mg 1-12 04-29 tablet by ity of tablet 00:00: 00:00 mouth [place] 00 :00 every 4 Medical (four) Branch hours as needed for Nausea and Vomiting (N/V). PROMETHAZIN 2019-04 Yes [id number] TAKE 1 [facility] E 25 mg 2-28 TABLET BY ity of tablet 00:00: MOUTH [place] 00 EVERY 4 Medical HOURS Branch NEEDED FOR NAUSEA AND VOMITING PROMETHAZIN 2019-04 Yes [id number] TAKE 1 [facility] E 25 mg 2-28 TABLET BY ity of tablet 00:00: MOUTH [place] 00 EVERY 4 Medical HOURS Branch NEEDED FOR NAUSEA AND VOMITING PROMETHAZIN 2019-04 Yes [id number] TAKE 1 [facility] E 25 mg 2-28 TABLET BY ity of tablet 00:00: MOUTH [place] 00 EVERY 4 Medical HOURS Branch NEEDED FOR NAUSEA AND VOMITING PROMETHAZIN 2019-04 Yes [id number] TAKE 1 [facility] E 25 mg 2-28 TABLET BY ity of tablet 00:00: MOUTH [place] 00 EVERY 4 Medical HOURS Branch NEEDED FOR NAUSEA AND VOMITING PROMETHAZIN 2019-04- No [id number] TAKE 1 [facility] E 25 mg 2-28 01-12 TABLET BY ity of tablet 00:00: 00:00 MOUTH [place] 00 :00 EVERY 4 Medical HOURS Branch NEEDED FOR NAUSEA AND VOMITING PROMETHAZIN 2019-04- No [id number] TAKE 1 [facility] E 25 mg 2-28 01-12 TABLET BY ity of tablet 00:00: 00:00 MOUTH [place] 00 :00 EVERY 4 Medical HOURS Branch NEEDED FOR NAUSEA AND VOMITING PROMETHAZIN 2019-04- No [id number] TAKE 1 [facility] E 25 mg 2-28 01-12 TABLET BY ity of tablet 00:00: 00:00 MOUTH [place] 00 :00 EVERY 4 Medical HOURS Branch NEEDED FOR NAUSEA AND VOMITING FOLIC ACID 2019-04 Yes Take by Univ ers ORAL 1-12 mouth. ity of 14:10: [place] [address] Medical Branch FOLIC ACID 2019-04 Yes Take by [facility] ers ORAL 1-12 mouth. ity of 14:10: [place] [address] Medical Branch FOLIC ACID 2019-04 Yes Take by [facility] ers ORAL 1-12 mouth. ity of 14:10: [place] [address] Medical Branch FOLIC ACID 2019-04 Yes Take by [facility] ers ORAL 1-12 mouth. ity of 14:10: [place] [address] Medical Branch FOLIC ACID 2019-04 Yes Take by [facility] ers ORAL 1-12 mouth. ity of 14:10: [place] [address] Medical Branch FOLIC ACID 2019-04 Yes Take by [facility] ers ORAL 1-12 mouth. ity of 14:10: [place] [address] Medical Branch FOLIC ACID 2019-04 Yes Take by [facility] ers ORAL 1-12 mouth. ity of 14:10: [place] [address] Medical Branch FOLIC ACID 2019-04 Yes Take by [facility] ers ORAL 1-12 mouth. ity of 14:10: [address] Branch FOLIC ACID 2019-04 Yes Take by [facility] ers ORAL 1-12 mouth. ity of 14:10: [place] [address] Medical Branch FOLIC ACID 2019-04 Yes Take by [facility] ers ORAL -12 mouth. ity of 14:10: [place] [address] Medical Branch FOLIC ACID 2019-04 Yes Take by [facility] ers ORAL 1-12 mouth. ity of 14:10: [address] Branch FOLIC ACID 2019-04 Yes Take by [facility] ers ORAL 1-12 mouth. ity of 14:10: [place] [address] Medical Branch FOLIC ACID 2019-04 Yes Take by [facility] ers ORAL 1-12 mouth. ity of 14:10: [place] [address] Medical Branch FOLIC ACID 2019-04 Yes Take by [facility] ers ORAL 1-12 mouth. ity of 14:10: [place] [address] Medical Branch FOLIC ACID 2019-04 Yes Take by [facility] ers ORAL 1-12 mouth. ity of 14:10: [place] [address] Medical Branch 2019-04 Yes Take by [facility] vit 1-12 mouth. ity of calc,iron,f 14:10: [place] [address] Medical ( Branch VITAMIN ORAL) 2019-04 Yes Take by [facility] s vit 1-12 mouth. ity of calc,iron,f 14:10: [place] olic 20 Medical ( Branch VITAMIN ORAL) 2020- Yes Take by [facility] vit 1-12 mouth. ity of calc,iron,f 14:10: [place] [address] Medical ( Branch VITAMIN ORAL) 2020- Yes Take by [facility] vit 1-12 mouth. ity of calc,iron,f 14:10: [place] [address] Medical ( Branch VITAMIN ORAL) 2020 Yes Take by [facility] vit 1-12 mouth. ity of calc,iron,f 14:10: [place] [address] Medical ( Branch VITAMIN ORAL) 2020 Yes Take by [facility] vit 1-12 mouth. ity of calc,iron,f 14:10: [place] [address] Medical ( Branch VITAMIN ORAL) 2020 Yes Take by [facility] vit 1-12 mouth. ity of calc,iron,f 14:10: [place] [address] Medical ( Branch VITAMIN ORAL) 2020 Yes Take by [facility] s vit 1-12 mouth. ity of calc,iron,f 14:10: [place] [address] Medical ( Branch VITAMIN ORAL) 2020 Yes Take by [facility] vit 1-12 mouth. ity of calc,iron,f 14:10: [place] [address] Medical ( Branch VITAMIN ORAL) 2020- Yes Take by [facility] vit 1-12 mouth. ity of calc,iron,f 14:10: [place] [address] Medical ( Branch VITAMIN ORAL) 2020 Yes Take by [facility] vit 1-12 mouth. ity of calc,iron,f 14:10: [place] [address] Medical ( Branch VITAMIN ORAL) cephALEXin 2019-04 2020- No [id number] 500mg Take 1 [facility] (KEFLEX) 0-26 11-06 capsule by ity of 500 mg 00:00: 05:59 mouth 4 [place] capsule 00 :00 (four) Medical times Branch daily for 10 days. cephALEXin 2019-04 2020- No [id number] 500mg Take 1 [facility] (KEFLEX) 0-26 11-06 capsule by ity of 500 mg 00:00: 05:59 mouth 4 [place] capsule 00 :00 (four) Medical times Branch daily for 10 days. cephALEXin 2019-04 2020- No [id number] 500mg Take 1 [facility] (KEFLEX) 0-26 11- capsule by ity of 500 mg 00:00: 05:59 mouth 4 [place] capsule 00 :00 (four) Medical times Branch daily for 10 days. cephALEXin 2019-04 2020- No [id number] 500mg Take 1 [facility] (KEFLEX) 0-10 03- capsule by ity of 500 mg 00:00: 05:59 mouth 4 [place] capsule 00 :00 (four) Medical times Branch daily for 10 days. cephALEXin 2019-04 2020- No [id number] 500mg Take 1 [facility] (KEFLEX) 0-10 03- capsule by ity of 500 mg 00:00: 05:59 mouth 4 [place] capsule 00 :00 (four) Medical times Branch daily for 10 days. cephALEXin 2019-04- No [id number] 500mg Take 1 [facility] (KEFLEX) 0-10 03- capsule by ity of 500 mg 00:00: 05:59 mouth 4 [place] capsule 00 :00 (four) Medical times Branch daily for 10 days. 2019-04 Yes Take by [facility] vit 0-22 mouth. ity of calc,iron,f 14:18: [place] [address] Medical ( Branch VITAMIN ORAL) 2019-04 Yes Take by Un[facility] vit 0-22 mouth. ity of calc,iron,f 14:18: [place] [address] Medical ( Branch VITAMIN ORAL) 2019-04 Yes Take by Un[facility] vit 0-22 mouth. ity of calc,iron,f 14:18: [place] [address] Medical ( Branch VITAMIN ORAL) 2020 Yes Take by Un[facility] vit 0-22 mouth. ity of calc,iron,f 14:18: [place] [id number] Medical ( Branch VITAMIN ORAL) 2020 Yes Take by Un[facility] vit 0-22 mouth. ity of calc,iron,f 14:18: [place] [id number] Medical ( Branch VITAMIN ORAL) 2020 Yes Take by Un[facility] vit 0-22 mouth. ity of calc,iron,f 14:18: [place] [address] Medical ( Branch VITAMIN ORAL) 2020 Yes Take by Un[facility] vit 0-22 mouth. ity of calc,iron,f 14:18: [place] [address] Medical ( Branch VITAMIN ORAL) 2020 Yes Take by [facility] vit 0-22 mouth. ity of calc,iron,f 14:18: [place] [address] Medical ( Branch VITAMIN ORAL) 2019-04 Yes Take by [facility] vit 0-22 mouth. ity of calc,iron,f 14:18: [place] [id number] Medical ( Branch VITAMIN ORAL) 2019-04 Yes Take by Un[facility] vit 0-22 mouth. ity of calc,iron,f 14:18: [address] ( Branch VITAMIN ORAL) FOLIC ACID 2019-04 Yes Take by Univ ers ORAL 0-22 mouth. ity of 14:18: [address] FOLIC ACID 2019-04 Yes Take by Univ ers ORAL 0-22 mouth. ity of 14:18: [address] FOLIC ACID 2019-04 Yes Take by Univ ers ORAL 0-22 mouth. ity of 14:18: [address] FOLIC ACID 2019-04 Yes Take by Univ ers ORAL 0-22 mouth. ity of 14:18: [address] FOLIC ACID 2019-04 Yes Take by Univ ers ORAL 0-22 mouth. ity of 14:18: [address] FOLIC ACID 2019- Yes Take by Univ ers ORAL 0-22 mouth. ity of 14:18: [address] FOLIC ACID 2019-04 Yes Take by Univ ers ORAL 0-22 mouth. ity of 14:18: [address] FOLIC ACID 2019-04 Yes Take by Univ ers ORAL 0-22 mouth. ity of 14:18: [address] FOLIC ACID 2019-04 Yes Take by Univ ers ORAL 0-22 mouth. ity of 14:18: [address] FOLIC ACID 2019-04 Yes Take by Univ ers ORAL 0-22 mouth. ity of 14:18: [address] proMETHazin 2019- Yes [id number] 25mg Take 1 [facility] e 25 mg 0-16 tablet by ity of tablet 00:00: mouth [place] 00 every 4 Medical (four) Branch hours as needed for Nausea and Vomiting (N/V). proMETHazin 2019-04 Yes [id number] 25mg Take 1 [facility] e 25 mg 0-16 tablet by ity of tablet 00:00: mouth [place] 00 every 4 Medical (four) Branch hours as needed for Nausea and Vomiting (N/V). proMETHazin 2019-04 Yes [id number] 25mg Take 1 [facility] e 25 mg 0-16 tablet by ity of tablet 00:00: mouth [place] 00 every 4 Medical (four) Branch hours as needed for Nausea and Vomiting (N/V). proMETHazin 2019- Yes [id number] 25mg Take 1 [facility] e 25 mg 0-16 tablet by ity of tablet 00:00: mouth [place] 00 every 4 Medical (four) Branch hours as needed for Nausea and Vomiting (N/V). proMETHazin 2019-04 Yes [id number] 25mg Take 1 [facility] e 25 mg 0-16 tablet by ity of tablet 00:00: mouth [place] 00 every 4 Medical (four) Branch hours as needed for Nausea and Vomiting (N/V). proMETHazin 2019-04 Yes [id number] 25mg Take 1 [facility] e 25 mg 0-16 tablet by ity of tablet 00:00: mouth [place] 00 every 4 Medical (four) Branch hours as needed for Nausea and Vomiting (N/V). proMETHazin 2019-04 Yes [id number] 25mg Take 1 [facility] e 25 mg 0-16 tablet by ity of tablet 00:00: mouth [place] 00 every 4 Medical (four) Branch hours as needed for Nausea and Vomiting (N/V). proMETHazin 2019-04 Yes [id number] 25mg Take 1 [facility] e 25 mg 0-16 tablet by ity of tablet 00:00: mouth [place] 00 every 4 Medical (four) Branch hours as needed for Nausea and Vomiting (N/V). proMETHazin 2019-04 Yes [id number] 25mg Take 1 [facility] e 25 mg 0-16 tablet by ity of tablet 00:00: mouth [place] 00 every 4 Medical (four) Branch hours as needed for Nausea and Vomiting (N/V). proMETHazin 2019-04 Yes [id number] 25mg Take 1 [facility] e 25 mg 0-16 tablet by ity of tablet 00:00: mouth [place] 00 every 4 Medical (four) Branch hours as needed for Nausea and Vomiting (N/V). proMETHazin 2019- Yes [id number] 25mg Take 1 [facility] e 25 mg 0-16 tablet by ity of tablet 00:00: mouth [place] 00 every 4 Medical (four) Branch hours as needed for Nausea and Vomiting (N/V). proMETHazin 2019-04 Yes [id number] 25mg Take 1 [facility] e 25 mg 0-16 tablet by ity of tablet 00:00: mouth [place] 00 every 4 Medical (four) Branch hours as needed for Nausea and Vomiting (N/V). proMETHazin 2019- Yes [id number] 25mg Take 1 [facility] e 25 mg 0-16 tablet by ity of tablet 00:00: mouth [place] 00 every 4 Medical (four) Branch hours as needed for Nausea and Vomiting (N/V). proMETHazin 2019- Yes [id number] 25mg Take 1 [facility] e 25 mg 0-16 tablet by ity of tablet 00:00: mouth [place] 00 every 4 Medical (four) Branch hours as needed for Nausea and Vomiting (N/V). proMETHazin 2019-04 Yes [id number] 25mg Take 1 [facility] e 25 mg 0-16 tablet by ity of tablet 00:00: mouth [place] 00 every 4 Medical (four) Branch hours as needed for Nausea and Vomiting (N/V). proMETHazin 2019-04 Yes [id number] 25mg Take 1 [facility] e 25 mg 0-16 tablet by ity of tablet 00:00: mouth [place] 00 every 4 Medical (four) Branch hours as needed for Nausea and Vomiting (N/V). proMETHazin 2019-04 Yes [id number] 25mg Take 1 [facility] e 25 mg 0-16 tablet by ity of tablet 00:00: mouth [place] 00 every 4 Medical (four) Branch hours as needed for Nausea and Vomiting (N/V). proMETHazin 2019-04 Yes [id number] 25mg Take 1 [facility] e 25 mg 0-16 tablet by ity of tablet 00:00: mouth [place] 00 every 4 Medical (four) Branch hours as needed for Nausea and Vomiting (N/V). proMETHazin 2019-04 2020- No [id number] 25mg Take 1 [facility] e 25 mg 0-16 12-28 tablet by ity of tablet 00:00: 00:00 mouth [place] 00 :00 every 4 Medical (four) Branch hours as needed for Nausea and Vomiting (N/V). Nitrofurant 2019-2019- No [id number] 100mg Take 1 [facility] oin&Nit. 9-28 10-06 capsule by ity of Macrocryst 00:00: 04:59 mouth 2 [place] (MACROBID) 00 :00 (two) Medical 100 mg times Branch capsule daily for 7 days. Nitrofurant 2019- No [id number] 100mg Take 1 [facility] oin&Nit. 9-06 capsule by ity of Macrocryst 00:00: 04:59 mouth 2 [place] (MACROBID) 00 :00 (two) Medical 100 mg times Branch capsule daily for 7 days. FOLIC ACID 2020-0 Yes Take by Univ ers ORAL 9-24 mouth. ity of 15:38: [address] 2020-0 Yes Take by Univer s vit 9-24 mouth. ity of calc,iron,f 15:38: [address] ( Branch VITAMIN ORAL) FOLIC ACID 2020-0 Yes Take by Univ ers ORAL 9-24 mouth. ity of 15:38: [address] 2020-0 Yes Take by Univer s vit 9-24 mouth. ity of calc,iron,f 15:38: [address] ( Branch VITAMIN ORAL) FOLIC ACID 2020-0 Yes Take by Univ ers ORAL 9-24 mouth. ity of 15:38: [address] 2020-0 Yes Take by Univer s vit 9-24 mouth. ity of calc,iron,f 15:38: [address] ( Branch VITAMIN ORAL) FOLIC ACID 2020-0 Yes Take by Univ ers ORAL 9-24 mouth. ity of 15:38: [address] 2020-0 Yes Take by Univer s vit 9-24 mouth. ity of calc,iron,f 15:38: [address] ( Branch VITAMIN ORAL) FOLIC ACID 2020-0 Yes Take by Univ ers ORAL 9-24 mouth. ity of 15:38: [address] 2020-0 Yes Take by Univer s vit 9-24 mouth. ity of calc,iron,f 15:38: [place] [address] Medical ( Branch VITAMIN ORAL) FOLIC ACID 2020-0 Yes Take by Univ ers ORAL 9-24 mouth. ity of 15:38: [address] 2020-0 Yes Take by Univer s vit 9-24 mouth. ity of calc,iron,f 15:38: [address] ( Branch VITAMIN ORAL) FOLIC ACID 2020-0 Yes Take by Univ ers ORAL 9-24 mouth. ity of 15:38: [address] 2020-0 Yes Take by Univer s vit 9-24 mouth. ity of calc,iron,f 15:38: [place] [address] Medical ( Branch VITAMIN ORAL) FOLIC ACID 2020-0 Yes Take by [facility] ers ORAL 9-24 mouth. ity of 15:38: [place] [id number] Medical Branch 2020-0 Yes Take by [facility] s vit 9-24 mouth. ity of calc,iron,f 15:38: [place] [address] Medical ( Branch VITAMIN ORAL) proMETHazin 2020-0 Yes [id number] 25mg Take 1 [facility] e 25 mg 9-24 tablet by ity of tablet 00:00: mouth [place] 00 every 4 Medical (four) Branch hours as needed for Nausea and Vomiting (N/V). proMETHazin 2020-0 Yes [id number] 25mg Take 1 [facility] e 25 mg 9-24 tablet by ity of tablet 00:00: mouth [place] 00 every 4 Medical (four) Branch hours as needed for Nausea and Vomiting (N/V). proMETHazin 2020-0 Yes [id number] 25mg Take 1 [facility] e 25 mg 9-24 tablet by ity of tablet 00:00: mouth [place] 00 every 4 Medical (four) Branch hours as needed for Nausea and Vomiting (N/V). proMETHazin 2020-0 Yes [id number] 25mg Take 1 [facility] e 25 mg 9-24 tablet by ity of tablet 00:00: mouth [place] 00 every 4 Medical (four) Branch hours as needed for Nausea and Vomiting (N/V). proMETHazin 2020-0 Yes [id number] 25mg Take 1 [facility] e 25 mg 9-24 tablet by ity of tablet 00:00: mouth [place] 00 every 4 Medical (four) Branch hours as needed for Nausea and Vomiting (N/V). proMETHazin 2020-0 Yes [id number] 25mg Take 1 [facility] e 25 mg 9-24 tablet by ity of tablet 00:00: mouth [place] 00 every 4 Medical (four) Branch hours as needed for Nausea and Vomiting (N/V). proMETHazin 2020-0 Yes [id number] 25mg Take 1 [facility] e 25 mg 9-24 tablet by ity of tablet 00:00: mouth [place] 00 every 4 Medical (four) Branch hours as needed for Nausea and Vomiting (N/V). proMETHazin 2020-0 2020- No [id number] 25mg Take 1 [facility] e 25 mg 9-24 10-16 tablet by ity of tablet 00:00: 00:00 mouth [place] 00 :00 every 4 Medical (four) Branch hours as needed for Nausea and Vomiting (N/V). Immunizations Ordered Filled Immunization Date Status Comments [facility] e Immunization Name Name SARS-COV-2 COVID-19 2020-10-12 Completed Unive rsity of PFIZER VACCINE 00:00:00 [facility] SARS-COV-2 COVID-19 2020-10-12 Completed Unive rsity of PFIZER VACCINE 00:00:00 [facility] SARS-COV-2 COVID-19 2020-10-12 Completed Unive rsity of PFIZER VACCINE 00:00:00 [facility] SARS-COV-2 COVID-19 2020-10-12 Completed Unive rsity of PFIZER VACCINE 00:00:00 [facility] SARS-COV-2 COVID-19 2020-10-12 Completed Unive rsity of PFIZER VACCINE 00:00:00 [facility] SARS-COV-2 COVID-19 2020-09-22 Completed Unive rsity of PFIZER VACCINE 00:00:00 [facility] SARS-COV-2 COVID-19 2020-09-22 Completed Unive rsity of PFIZER VACCINE 00:00:00 [facility] SARS-COV-2 COVID-19 2020-09-22 Completed Unive rsity of PFIZER VACCINE 00:00:00 [facility] SARS-COV-2 COVID-19 2020-09-22 Completed Unive rsity of PFIZER VACCINE 00:00:00 [facility] SARS-COV-2 COVID-19 2020-09-22 Completed Unive rsity of PFIZER VACCINE 00:00:00 [facility] TDAP 2020-05-24 Completed University of 00:00:00 [facility] TDAP 2020-05-24 Completed University of 00:00:00 [facility] TDAP 2020-05-24 Completed University of 00:00:00 [facility] TDAP 2020-05-24 Completed University of 00:00:00 [facility] TDAP 2020-05-24 Completed University of 00:00:00 [facility] TDAP 2020-05-24 Completed University of 00:00:00 [facility] TDAP 2020-05-24 Completed University of 00:00:00 [facility] TDAP 2020-05-24 Completed University of 00:00:00 [place] [facility] TDAP 2020-05-24 Completed University of 00:00:00 [place] [facility] TDAP 2020-05-24 Completed University of 00:00:00 [place] [facility] TDAP 2020-05-24 Completed University of 00:00:00 [place] [facility] TDAP 2020-05-24 Completed University of 00:00:00 [place] [facility] TDAP 2020-05-24 Completed University of 00:00:00 [place] [facility] TDAP 2020-05-24 Completed University of 00:00:00 [place] [facility] TDAP 2020-05-24 Completed University of 00:00:00 [place] [facility] TDAP 2020-05-24 Completed University of 00:00:00 [place] [facility] TDAP 2020-05-24 Completed University of 00:00:00 [place] [facility] TDAP 2020-05-24 Completed University of 00:00:00 [place] [facility] TDAP 2020-05-24 Completed University of 00:00:00 [place] [facility] TDAP 2020-05-24 Completed University of 00:00:00 [place] [facility] TDAP 2020-05-24 Completed University of 00:00:00 [place] [facility] TDAP 2020-05-24 Completed University of 00:00:00 [place] [facility] TDAP 2020-05-24 Completed University of 00:00:00 [place] [facility] TDAP 2020-05-24 Completed University of 00:00:00 [place] [facility] TDAP 2020-05-24 Completed University of 00:00:00 [place] [facility] TDAP 2020-05-24 Completed University of 00:00:00 [place] [facility] TDAP 2020-05-24 Completed University of 00:00:00 [place] [facility] TDAP 2020-05-24 Completed University of 00:00:00 [place] [facility] TDAP 2020-05-24 Completed University of 00:00:00 [place] [facility] TDAP 2020-05-24 Completed University of 00:00:00 [place] [facility] TDAP 2020-05-24 Completed University of 00:00:00 [place] [facility] TDAP 2020-05-24 Completed University of 00:00:00 [place] [facility] TDAP 2020-05-24 Completed University of 00:00:00 [place] [facility] TDAP 2020-05-24 Completed University of 00:00:00 [place] [facility] TDAP 2020-05-24 Completed University of 00:00:00 [facility] TDAP 2020-05-24 Completed University of 00:00:00 [facility] PPD (TB) 2020-01-11 Completed University of 00:00:00 [facility] PPD (TB) 2020-01-11 Completed University of 00:00:00 [facility] PPD (TB) 2020-01-11 Completed University of 00:00:00 [facility] PPD (TB) 2020-01-11 Completed University of 00:00:00 [facility] PPD (TB) 2020-01-11 Completed University of 00:00:00 [facility] PPD (TB) 2020-01-11 Completed University of 00:00:00 [facility] PPD (TB) 2020-01-11 Completed University of 00:00:00 [facility] PPD (TB) 2020-01-11 Completed University of 00:00:00 [facility] PPD (TB) 2020-01-11 Completed University of 00:00:00 [facility] PPD (TB) 2020-01-11 Completed University of 00:00:00 [facility] PPD (TB) 2020-01-11 Completed University of 00:00:00 [facility] PPD (TB) 2020-01-11 Completed University of 00:00:00 [facility] PPD (TB) 2020-01-11 Completed University of 00:00:00 [facility] PPD (TB) 2020-01-11 Completed University of 00:00:00 [facility] PPD (TB) 2020-01-11 Completed University of 00:00:00 [facility] PPD (TB) 2020-01-11 Completed University of 00:00:00 [facility] PPD (TB) 2020-01-11 Completed University of 00:00:00 [facility] PPD (TB) 2020-01-11 Completed University of 00:00:00 [facility] PPD (TB) 2020-01-11 Completed University of 00:00:00 [facility] PPD (TB) 2020-01-11 Completed University of 00:00:00 [facility] PPD (TB) 2020-01-11 Completed University of 00:00:00 [facility] PPD (TB) 2020-01-11 Completed University of 00:00:00 [facility] PPD (TB) 2020-01-11 Completed University of 00:00:00 [facility] PPD (TB) 2020-01-11 Completed University of 00:00:00 [facility] PPD (TB) 2020-01-11 Completed University of 00:00:00 [place] [facility] PPD (TB) 2020-01-11 Completed University of 00:00:00 [place] [facility] PPD (TB) 2020-01-11 Completed University of 00:00:00 [place] [facility] PPD (TB) 2020-01-11 Completed University of 00:00:00 [facility] PPD (TB) 2020-01-11 Completed University of 00:00:00 [place] [facility] PPD (TB) 2020-01-11 Completed University of 00:00:00 [facility] PPD (TB) 2020-01-11 Completed University of 00:00:00 [facility] PPD (TB) 2020-01-11 Completed University of 00:00:00 [facility] PPD (TB) 2020-01-11 Completed University of 00:00:00 [facility] PPD (TB) 2020-01-11 Completed University of 00:00:00 [facility] PPD (TB) 2020-01-11 Completed University of 00:00:00 [facility] PPD (TB) 2020-01-11 Completed University of 00:00:00 [facility] PPD (TB) 2020-01-11 Completed University of 00:00:00 [facility] PPD (TB) 2020-01-11 Completed University of 00:00:00 [facility] PPD (TB) 2020-01-11 Completed University of 00:00:00 [facility] PPD (TB) 2020-01-11 Completed University of 00:00:00 [facility] PPD (TB) 2020-01-11 Completed University of 00:00:00 [facility] PPD (TB) 2020-01-11 Completed University of 00:00:00 [facility] PPD (TB) 2020-01-11 Completed University of 00:00:00 [facility] PPD (TB) 2020-01-11 Completed University of 00:00:00 [facility] PPD (TB) 2020-01-11 Completed University of 00:00:00 [facility] PPD (TB) 2020-01-11 Completed University of 00:00:00 [facility] PPD (TB) 2020-01-11 Completed University of 00:00:00 [facility] PPD (TB) 2020-01-11 Completed University of 00:00:00 [facility] PPD (TB) 2020-01-11 Completed University of 00:00:00 [facility] PPD (TB) 2020-01-11 Completed University of 00:00:00 [facility] PPD (TB) 2020-01-11 Completed University of 00:00: [facility] PPD (TB) 2020-01-11 Completed University of 00:00:00 [facility] PPD (TB) 2020-01-11 Completed University of 00:00:00 [facility] PPD (TB) 2020-01-11 Completed University of 00:00:00 [facility] PPD (TB) 2020-01-11 Completed University of 00:00:00 [facility] PPD (TB) 2020-01-11 Completed University of 00:00:00 [facility] PPD (TB) 2020-01-11 Completed University of 00:00:00 [facility] PPD (TB) 2020-01-11 Completed University of 00:00:00 [facility] PPD (TB) 2020-01-11 Completed University of 00:00:00 [facility] PPD (TB) 2020-01-11 Completed University of 00:00:00 [facility] PPD (TB) 2020-01-11 Completed University of 00:00:00 [facility] PPD (TB) 2020-01-11 Completed University of 00:00:00 [facility] PPD (TB) 2020-01-11 Completed University of 00:00:00 [facility] PPD (TB) 2020-01-11 Completed University of 00:00:00 [facility] PPD (TB) 2020-01-11 Completed University of 00:00:00 [facility] PPD (TB) 2020-01-11 Completed University of 00:00:00 [facility] PPD (TB) 2020-01-11 Completed University of 00:00:00 [facility] Influenza Virus 2020-01-07 Completed Universit y of Vaccine Quad .5 mL 00:00:00 [place] [facility] IM 6+ MO Branch Influenza Virus 2020-01-07 Completed Universit y of Vaccine [place] .5 mL 00:00:00 [place] [facility] IM 6+ MO Branch Influenza Virus 2020-01-07 Completed Universit y of Vaccine [place] .5 mL 00:00:00 [place] [facility] IM 6+ MO Branch Influenza Virus 2020-01-07 Completed Universit y of Vaccine [place] .5 mL 00:00:00 [place] [facility] IM 6+ MO Branch Influenza Virus 2020-01-07 Completed Universit y of Vaccine Quad .5 mL 00:00:00 [place] [facility] IM 6+ MO Branch Influenza Virus 2020-01-07 Completed Universit y of Vaccine [place] .5 mL 00:00:00 [place] [facility] IM 6+ MO Branch Influenza Virus 2020-01-07 Completed Universit y of Vaccine [place] .5 mL 00:00:00 [place] [facility] IM 6+ MO Branch Influenza Virus 2020-01-07 Completed Universit y of Vaccine [place] .5 mL 00:00:00 [place] [facility] IM 6+ MO Branch Influenza Virus 2020-01-07 Completed Universit y of Vaccine [place] .5 mL 00:00:00 [place] [facility] IM 6+ MO Branch Influenza Virus 2020-01-07 Completed Universit y of Vaccine [place] .5 mL 00:00:00 [place] [facility] IM 6+ MO Branch Influenza Virus 2020-01-07 Completed Universit y of Vaccine Quad .5 mL 00:00:00 [place] [facility] 6+ MO Branch Influenza Virus 2020-01-07 Completed Universit y of Vaccine [place] .5 mL 00:00:00 [place] [facility] IM 6+ MO Branch Influenza Virus 2020-01-07 Completed Universit y of Vaccine [place] .5 mL 00:00:00 [place] [facility] 6+ MO Branch Influenza Virus 2020-01-07 Completed Universit y of Vaccine [place] .5 mL 00:00:00 [place] [facility] 6+ MO Branch Influenza Virus 2020-01-07 Completed Universit y of Vaccine [place] .5 mL 00:00:00 [place] [facility] 6+ MO Branch Influenza Virus 2020-01-07 Completed Universit y of Vaccine [place] .5 mL 00:00:00 [place] [facility] IM 6+ MO Branch Influenza Virus 2020-01-07 Completed Universit y of Vaccine [place] .5 mL 00:00:00 [place] [facility] IM 6+ MO Branch Influenza Virus 2020-01-07 Completed Universit y of Vaccine [place] .5 mL 00:00:00 [place] [facility] IM 6+ MO Branch Influenza Virus 2020-01-07 Completed Universit y of Vaccine [facility] .5 mL 00:00:00 [place] [facility] IM 6+ MO Branch Influenza Virus 2020-01-07 Completed Universit y of Vaccine [place] .5 mL 00:00:00 [place] [facility] IM 6+ MO Branch Influenza Virus 2020-01-07 Completed Universit y of Vaccine [facility] .5 mL 00:00:00 [place] [facility] IM 6+ MO Branch Influenza Virus 2020-01-07 Completed Universit y of Vaccine Quad .5 mL 00:00:00 [place] [facility] IM 6+ MO Branch Influenza Virus 2020-01-07 Completed Universit y of Vaccine [facility] .5 mL 00:00:00 [place] [facility] IM 6+ MO Branch Influenza Virus 2020-01-07 Completed Universit y of Vaccine [facility] .5 mL 00:00:00 [place] [facility] IM 6+ MO Branch Influenza Virus 2020-01-07 Completed Universit y of Vaccine [facility] .5 mL 00:00:00 [place] [facility] IM 6+ MO Branch Influenza Virus 2020-01-07 Completed Universit y of Vaccine [facility] .5 mL 00:00:00 [place] [facility] IM 6+ MO Branch Influenza Virus 2020-01-07 Completed Universit y of Vaccine [facility] .5 mL 00:00:00 [place] [facility] IM 6+ MO Branch Influenza Virus 2020-01-07 Completed Universit y of Vaccine [facility] .5 mL 00:00:00 [place] [facility] 6+ MO Branch Influenza Virus 2020-01-07 Completed Universit y of Vaccine Quad .5 mL 00:00:00 [place] [facility] 6+ MO Branch Influenza Virus 2020-01-07 Completed Universit y of Vaccine Quad .5 mL 00:00:00 [place] [facility] 6+ MO Branch Influenza Virus 2020-01-07 Completed Universit y of Vaccine Quad .5 mL 00:00:00 [place] [facility] 6+ MO Branch Influenza Virus 2020-01-07 Completed Universit y of Vaccine Quad .5 mL 00:00:00 [place] [facility] 6+ MO Branch Influenza Virus 2020-01-07 Completed Universit y of Vaccine Quad .5 mL 00:00:00 [place] [facility] 6+ MO Branch Influenza Virus 2020-01-07 Completed Universit y of Vaccine Quad .5 mL 00:00:00 [place] [facility] IM 6+ MO Branch Influenza Virus 2020-01-07 Completed Universit y of Vaccine Quad .5 mL 00:00:00 [place] [facility] IM 6+ MO Branch Influenza Virus 2020-01-07 Completed Universit y of Vaccine Quad .5 mL 00:00:00 [place] [facility] IM 6+ MO Branch Influenza Virus 2020-01-07 Completed Universit y of Vaccine Quad .5 mL 00:00:00 [place] [facility] 6+ MO Branch Influenza Virus 2020-01-07 Completed Universit y of Vaccine Quad .5 mL 00:00:00 [place] [facility] IM 6+ MO Branch Influenza Virus 2020-01-07 Completed Universit y of Vaccine Quad .5 mL 00:00:00 [place] [facility] IM 6+ MO Branch Influenza Virus 2020-01-07 Completed Universit y of Vaccine Quad .5 mL 00:00:00 [place] [facility] IM 6+ MO Branch Influenza Virus 2020-01-07 Completed Universit y of Vaccine Quad .5 mL 00:00:00 [place] [facility] IM 6+ MO Branch Influenza Virus 2020-01-07 Completed Universit y of [facility] .5 mL 00:00:00 [facility] Influenza Virus 2020-01-07 Completed [facility] .5 mL 00:00:00 [facility] Influenza Virus 2020-01-07 Completed [facility] .5 mL 00:00:00 [facility] Influenza Virus 2020-01-07 Completed [facility] .5 mL 00:00:00 [facility] Influenza Virus 2020-01-07 Completed [facility] .5 mL 00:00:00 [facility] Influenza Virus 2020-01-07 Completed [facility] .5 mL 00:00:00 [facility] Influenza Virus 2020-01-07 Completed [facility] .5 mL 00:00:00 [facility] Influenza Virus 2020-01-07 Completed [facility] .5 mL 00:00:00 [facility] Influenza Virus 2020-01-07 Completed [facility] .5 mL 00:00:00 [facility] Influenza Virus 2020-01-07 Completed [facility] .5 mL 00:00:00 [facility] Influenza Virus 2020-01-07 Completed [facility] .5 mL 00:00:00 [facility] Influenza Virus 2020-01-07 Completed [facility] .5 mL 00:00:00 [facility] Influenza Virus 2020-01-07 Completed [facility] .5 mL 00:00:00 [facility] Influenza Virus 2020-01-07 Completed [facility] .5 mL 00:00:00 [facility] Influenza Virus 2020-01-07 Completed [facility] .5 mL 00:00:00 [facility] Influenza Virus 2020-01-07 Completed [facility] .5 mL 00:00:00 [facility] Influenza Virus 2020-01-07 Completed [facility] .5 mL 00:00:00 [facility] Influenza Virus 2020-01-07 Completed [facility] .5 mL 00:00:00 [facility] Influenza Virus 2020-01-07 Completed [facility] .5 mL 00:00:00 [facility] Influenza Virus 2020-01-07 Completed [facility] .5 mL 00:00:00 [facility] Influenza Virus 2020-01-07 Completed [facility] .5 mL 00:00:00 [facility] Influenza Virus 2020-01-07 Completed [facility] .5 mL 00:00:00 [facility] Influenza Virus 2020-01-07 Completed [facility] .5 mL 00:00:00 [facility] Influenza Virus 2020-01-07 Completed [facility] .5 mL 00:00:00 [facility] Influenza Virus 2020-01-07 Completed [facility] .5 mL 00:00:00 [facility] Influenza Virus 2020-01-07 Completed [facility] .5 mL 00:00:00 [facility] Influenza Virus 2020-01-07 Completed [facility] .5 mL 00:00:00 [facility] Influenza Virus 2020-01-07 Completed [facility] .5 mL 00:00:00 [facility] Vital Signs Vital Name Observation Time Observation Value Comments Source Systolic blood 2022-01-03 18:14:00 110 mm[Hg] Univer sity of pressure [facility] Diastolic blood 2022-01-03 18:14:00 75 mm[Hg] Unive rsity of pressure [facility] Heart rate 2022-01-03 18:14:00 81 /min [facility] of [facility] Body temperature 2022-01-03 18:14:[address] Univ ersity of [facility] Respiratory rate 2022-01-03 18:14:00 18 /min [facility] Body height 2022-01-03 18:14:00 152.4 cm [facility] Body weight 2022-01-03 18:14:00 59.875 kg [facility] BMI 2022-01-03 18:14:00 25.78 kg/m2 [facility] Systolic blood 2020-09-20 20:34:00 109 mm[Hg] [facility] of pressure [facility] Diastolic blood 2020-09-20 20:34:00 66 mm[Hg] [facility] of pressure [facility] Heart rate 2020-09-20 20:34:00 83 /min [facility] Body temperature 2020-09-20 20:34:[address] [facility] Respiratory rate 2020-09-20 20:34:00 16 /min [facility] Body height 2020-09-20 20:34:00 152.4 cm [facility] Body weight 2020-09-20 20:34:00 64.592 kg [facility] BMI 2020-09-20 20:34:00 27.81 kg/m2 [facility] Systolic blood 2020-08-30 18:28:00 102 mm[Hg] [facility] pressure [facility] Diastolic blood 2020-08-30 18:28:00 61 mm[Hg] [facility] of pressure [facility] Heart rate 2020-08-30 18:28:00 80 /min [facility] Body temperature 2020-08-30 18:28:[address] [facility] Respiratory rate 2020-08-30 18:28:00 16 /min [facility] Body height 2020-08-30 18:28:00 152.4 cm [facility] Body weight 2020-08-30 18:28:00 63.305 kg [facility] BMI 2020-08-30 18:28:00 27.26 kg/m2 [facility] Systolic blood 2020-08-16 19:18:00 118 mm[Hg] [facility] pressure [facility] Diastolic blood 2020-08-16 19:18:00 78 mm[Hg] [facility] of pressure [facility] Heart rate 2020-08-16 19:18:00 103 /min [facility] Body temperature 2020-08-16 19:18:[address] [facility] Respiratory rate 2020-08-16 19:18:00 16 /min [facility] Body height 2020-08-16 19:18:00 152.4 cm [facility] Body weight 2020-08-16 19:18:00 68.692 kg [facility] BMI 2020-08-16 19:18:00 29.58 kg/m2 [facility] Oxygen saturation in 2020-08-09 18:30:00 100 /min [facility] Arterial blood by [facility] Pulse oximetry Branch Systolic blood 2020-08-09 18:30:00 121 mm[Hg] [facility] of pressure [facility] Diastolic blood 2020-08-09 18:30:00 77 mm[Hg] [facility] of pressure [facility] Heart rate 2020-08-09 18:30:00 128 /min [facility] Respiratory rate 2020-08-09 18:30:00 18 /min [facility] Body temperature 2020-08-09 18:00:[address] [facility] Body height 2020-08-08 11:48:00 152.4 cm [facility] Body weight 2020-08-08 11:48:00 71.668 kg [facility] BMI 2020-08-08 11:48:00 30.86 kg/m2 [facility] Systolic blood 2020-08-04 15:09:00 107 mm[Hg] [facility] pressure [facility] Diastolic blood 2020-08-04 15:09:00 74 mm[Hg] [facility] of pressure [facility] Heart rate 2020-08-04 15:09:00 97 /min [facility] Body temperature 2020-08-04 15:09:[address] [facility] Respiratory rate 2020-08-04 15:09:00 16 /min [facility] Body height 2020-08-04 15:09:00 152.4 cm [facility] Body weight 2020-08-04 15:09:00 72.122 kg [facility] BMI 2020-08-04 15:09:00 31.05 kg/m2 [facility] Systolic blood 2020-08-01 15:06:00 113 mm[Hg] [facility] pressure [facility] Diastolic blood 2020-08-01 15:06:00 75 mm[Hg] [facility] of pressure [facility] Heart rate 2020-08-01 15:06:00 101 /min [facility] Body temperature 2020-08-01 15:06:[address] [facility] Respiratory rate 2020-08-01 15:06:00 16 /min [facility] Body height 2020-08-01 15:06:00 152.4 cm [facility] Body weight 2020-08-01 15:06:00 71.578 kg [facility] BMI 2020-08-01 15:06:00 30.82 kg/m2 [facility] Systolic blood 2020-07-28 14:23:00 106 mm[Hg] [facility] pressure [facility] Diastolic blood 2020-07-28 14:23:00 65 mm[Hg] [facility] of pressure [facility] Heart rate 2020-07-28 14:23:00 87 /min [facility] Body temperature 2020-07-28 14:23:[address] [facility] Respiratory rate 2020-07-28 14:23:00 16 /min [facility] Body height 2020-07-28 14:23:00 152.4 cm [facility] Body weight 2020-07-28 14:23:00 71.578 kg [facility] BMI 2020-07-28 14:23:00 30.82 kg/m2 [facility] Systolic blood 2020-07-26 13:17:00 107 mm[Hg] [facility] of pressure [facility] Diastolic blood 2020-07-26 13:17:00 69 mm[Hg] [facility] of pressure [facility] Heart rate 2020-07-26 13:17:00 105 /min [facility] Body temperature 2020-07-26 13:17:[address] [facility] Respiratory rate 2020-07-26 13:17:00 16 /min [facility] Body height 2020-07-26 13:17:00 152.4 cm [facility] Body weight 2020-07-26 13:17:00 70.364 kg [facility] BMI 2020-07-26 13:17:00 30.30 kg/m2 [facility] Systolic blood 2020-07-21 14:32:00 104 mm[Hg] [facility] pressure [facility] Diastolic blood 2020-07-21 14:32:00 71 mm[Hg] [facility] rsity of pressure [facility] Heart rate 2020-07-21 14:32:00 93 /min [facility] Body temperature 2020-07-21 14:32:[address] [facility] Respiratory rate 2020-07-21 14:32:00 16 /min [facility] Body height 2020-07-21 14:32:00 152.4 cm [facility] Body weight 2020-07-21 14:32:00 69.627 kg [facility] BMI 2020-07-21 14:32:00 29.98 kg/m2 [facility] Systolic blood 2020 14:36:00 110 mm[Hg] [facility] Diastolic blood 2020 14:36:00 73 mm[Hg] [facility] pressure [facility] Heart rate 2020 14:36:00 107 /min [facility] Body temperature 2020 14:36:[address] [facility] Respiratory rate 2020 14:36:00 16 /min [facility] Body height 2020 14:36:00 152.4 cm [facility] Body weight 2020 14:36:00 70.421 kg [facility] BMI 2020 14:36:00 30.32 kg/m2 [facility] Systolic blood 2020-07-14 14:55:00 98 mm[Hg] [facility] pressure [facility] Diastolic blood 2020-07-14 14:55:00 67 mm[Hg] [facility] rs[facility] of pressure [facility] Heart rate 2020-07-14 14:55:00 90 /min [facility] Body temperature 2020-07-14 14:55:[address] [facility] Respiratory rate 2020-07-14 14:55:00 16 /min [facility] Body height 2020-07-14 14:55:00 152.4 cm [facility] Body weight 2020-07-14 14:55:00 69.854 kg [facility] BMI 2020-07-14 14:55:00 30.08 kg/m2 [facility] Systolic blood 2020-07-11 14:06:00 105 mm[Hg] [facility] of pressure [facility] Diastolic blood 2020-07-11 14:06:00 70 mm[Hg] [facility]ive rsity of pressure [facility] Heart rate 2020-07-11 14:06:00 102 /min [facility] Body temperature 2020-07-11 14:06:[address] [facility] Respiratory rate 2020-07-11 14:06:00 16 /min [facility] Body height 2020-07-11 14:06:00 152.4 cm [facility] Body weight 2020-07-11 14:06:00 69.655 kg [facility] BMI 2020-07-11 14:06:00 29.99 kg/m2 [facility] Systolic blood 2020-07-07 15:11:00 100 mm[Hg] [facility] of pressure [facility] Diastolic blood 2020-07-07 15:11:00 66 mm[Hg] Unive rsity of pressure [facility] Heart rate 2020-07-07 15:11:00 80 /min [facility] Body temperature 2020-07-07 15:11:[address] [facility] Respiratory rate 2020-07-07 15:11:00 16 /min [facility] Body height 2020-07-07 15:11:00 152.4 cm [facility] Body weight 2020-07-07 15:11:00 69.174 kg [facility] BMI 2020-07-07 15:11:00 29.78 kg/m2 [facility] Systolic blood 2020-07-04 15:22:00 111 mm[Hg] [facility] pressure [facility] Diastolic blood 2020-07-04 15:22:00 65 mm[Hg] [facility]ive rs[facility] of pressure [facility] Heart rate 2020-07-04 15:22:00 98 /min [facility] Body temperature 2020-07-04 15:22:[address] [facility] Respiratory rate 2020-07-04 15:22:00 16 /min [facility] Body height 2020-07-04 15:22:00 152.4 cm [facility] Body weight 2020-07-04 15:22:00 69.31 kg [facility] BMI 2020-07-04 15:22:00 29.84 kg/m2 [facility] Systolic blood 2020-06-30 14:32:00 105 mm[Hg] [facility] pressure [facility] Diastolic blood 2020-06-30 14:32:00 64 mm[Hg] [facility] rs[facility] of pressure [facility] Heart rate 2020-06-30 14:32:00 106 /min [facility] Body temperature 2020-06-30 14:32:[address] [facility] Respiratory rate 2020-06-30 14:32:00 16 /min [facility] Body height 2020-06-30 14:32:00 152.4 cm [facility] Body weight 2020-06-30 14:32:00 69.128 kg [facility] BMI 2020-06-30 14:32:00 29.76 kg/m2 [facility] Systolic blood 2020-06-27 13:53:00 104 mm[Hg] [facility] of pressure [facility] Diastolic blood 2020-06-27 13:53:00 71 mm[Hg] Unive rsity of pressure [facility] Heart rate 2020-06-27 13:53:00 101 /min [facility] Body temperature 2020-06-27 13:53:[address] [facility] Respiratory rate 2020-06-27 13:53:00 16 /min [facility] Body height 2020-06-27 13:53:00 152.4 cm [facility] Body weight 2020-06-27 13:53:00 68.493 kg [facility] BMI 2020-06-27 13:53:00 29.49 kg/m2 [facility] Systolic blood 2020-06-23 18:39:00 107 mm[Hg] Univer [facility] of pressure [facility] Diastolic blood 2020-06-23 18:39:00 65 mm[Hg] Unive rsity of pressure [facility] Heart rate 2020-06-23 18:39:00 103 /min [facility] Body temperature 2020-06-23 18:39:[address] [facility] Respiratory rate 2020-06-23 18:39:00 16 /min [facility] Body height 2020-06-23 18:39:00 152.4 cm [facility] Body weight 2020-06-23 18:39:00 68.295 kg [facility] BMI 2020-06-23 18:39:00 29.40 kg/m2 [facility] Systolic blood 2020-06-20 15:45:00 93 mm[Hg] [facility] of pressure [facility] Diastolic blood 2020-06-20 15:45:00 66 mm[Hg] [facility]ive rsity of pressure [facility] Heart rate 2020-06-20 15:45:00 115 /min [facility] Body temperature 2020-06-20 15:45:[address] [facility] Respiratory rate 2020-06-20 15:45:00 16 /min [facility] Body height 2020-06-20 15:45:00 152.4 cm [facility] Body weight 2020-06-20 15:45:00 67.858 kg [facility] BMI 2020-06-20 15:45:00 29.22 kg/m2 [facility] Systolic blood 2020-06-07 15:21:00 114 mm[Hg] [facility] of pressure [facility] Diastolic blood 2020-06-07 15:21:00 67 mm[Hg] [facility]ive rsity of pressure [facility] Heart rate 2020-06-07 15:21:00 103 /min [facility] Body temperature 2020-06-07 15:21:[address] [facility] Respiratory rate 2020-06-07 15:21:00 16 /min [facility] Body height 2020-06-07 15:21:00 152.4 cm [facility] Body weight 2020-06-07 15:21:00 66.339 kg [facility] BMI 2020-06-07 15:21:00 28.56 kg/m2 [facility] Systolic blood 2020-04-26 15:37:00 104 mm[Hg] [facility] of pressure [facility] Diastolic blood 2020-04-26 15:37:00 69 mm[Hg] Unive rsity of pressure [facility] Heart rate 2020-04-26 15:37:00 108 /min [facility] Body temperature 2020-04-26 15:37:[address] [facility] Respiratory rate 2020-04-26 15:37:00 16 /min [facility] Body height 2020-04-26 15:37:00 152.4 cm [facility] Body weight 2020-04-26 15:37:00 61.009 kg [facility] BMI 2020-04-26 15:37:00 26.27 kg/m2 [facility] Systolic blood 2020-02-25 14:00:00 95 mm[Hg] [facility] of pressure [facility] Diastolic blood 2020-02-25 14:00:00 56 mm[Hg] Unive rsity of pressure [facility] Heart rate 2020-02-25 14:00:00 96 /min [facility] Body temperature 2020-02-25 14:00:[address] [facility] Respiratory rate 2020-02-25 14:00:00 16 /min [facility] Body height 2020-02-25 14:00:00 152.4 cm [facility] Body weight 2020-02-25 14:00:00 60.918 kg [facility] BMI 2020-02-25 14:00:00 26.23 kg/m2 [facility] Systolic blood 2020-02-04 14:16:00 112 mm[Hg] [facility] of pressure [facility] Diastolic blood 2020-02-04 14:16:00 72 mm[Hg] Unive rsity of pressure [facility] Heart rate 2020-02-04 14:16:00 84 /min [facility] Body temperature 2020-02-04 14:16:[address] [facility] Respiratory rate 2020-02-04 14:16:00 16 /min [facility] Body height 2020-02-04 14:16:00 152.4 cm [facility] Body weight 2020-02-04 14:16:00 60.499 kg [facility] BMI 2020-02-04 14:16:00 26.05 kg/m2 [facility] Systolic blood 2020-01-13 13:52:00 116 mm[Hg] [facility] of pressure [facility] Diastolic blood 2020-01-13 13:52:00 77 mm[Hg] Unive rsity of pressure [facility] Heart rate 2020-01-13 13:52:00 97 /min [facility] Body temperature 2020-01-13 13:52:[address] [facility] Respiratory rate 2020-01-13 13:52:00 16 /min [facility] Body height 2020-01-13 13:52:00 152.4 cm [facility] Body weight 2020-01-13 13:52:00 59.506 kg [facility] BMI 2020-01-13 13:52:00 25.62 kg/m2 [facility] Systolic blood 2020-01-11 14:34:00 110 mm[Hg] [facility] of pressure [facility] Diastolic blood 2020-01-11 14:34:00 76 mm[Hg] Unive rsity of pressure [facility] Heart rate 2020-01-11 14:34:00 89 /min [facility] Body temperature 2020-01-11 14:34:[address] [facility] Respiratory rate 2020-01-11 14:34:00 16 /min [facility] Body height 2020-01-11 14:34:00 152.4 cm [facility] Body weight 2020-01-11 14:34:00 59.512 kg [facility] BMI 2020-01-11 14:34:00 25.62 kg/m2 [facility] Systolic blood 2020-01-07 15:28:00 103 mm[Hg] [facility] of pressure [facility] Diastolic blood 2020-01-07 15:28:00 71 mm[Hg] Unive rsity of pressure [facility] Heart rate 2020-01-07 15:28:00 80 /min [facility] Body temperature 2020-01-07 15:28:[address] [facility] Respiratory rate 2020-01-07 15:28:00 16 /min [facility] Body height 2020-01-07 15:28:00 152.4 cm [facility] Body weight 2020-01-07 15:28:00 58.627 kg [facility] BMI 2020-01-07 15:28:00 25.24 kg/m2 [facility] Procedures Procedure Date / Time Performing Clinician Source Performed POCT TEST 2022-01-03 18:20:00 Fidelia Beasley [facility] POCT TEST 2020-09-20 20:40:00 Shannon Vidal [facility] CBC WITH DIFF 2020-08-11 10:41:00 Cherri Hebert [facility] CBC WITH DIFF 2020-08-10 09:11:00 Hemalatha Paulino [facility] CBC WITH DIFF 2020-08-10 02:31:00 Bibi Brewster [place] [facility] SECTION 2020-08-09 21:45:00 Amanda Hardin [facility] CENTRAL NEURAXIAL BLOCK 2020-08-09 04:52:16 Jose Luis Wood [facility] CBC WITH DIFF 2020-08-08 14:00:00 Angelo [facility] HEPATITIS B SURFACE 2020-08-08 14:00:00 Angelo [facility] ANTIGEN [facility] GALV ONLY - SYPHILIS 2020-08-08 14:00:00 Angelo [facility]mit[facility] IGG/IGM [facility] HB ABO GROUPING 2020-08-08 13:40:00 Angelo [facility] RHO (D) IMMUNE GLOBULIN 2020-08-08 13:40:00 Hemalatha Paulino [facility] COVID-19 (ID NOW RAPID 2020-08-08 11:30:00 Amanda Hardin [facility] TESTING) [facility] LAB ONLY COVID 2020-08-08 11:30:00 Amanda Hardin [facility] INTERPRETATION [facility] POCT URINALYSIS W/O 2020-08-04 21:29:00 Shannon Vidal [facility] SPECIFIC GRAVITY [facility] NON-STRESS TEST 2020-08-04 19:22:21 Jillian Lugo [facility] POCT URINALYSIS W/O 2020-08-04 15:10:00 Shannon Vidal Un[facility]ity of [facility] [place] NON-STRESS TEST 2020-08-01 15:18:51 Shannon Vidal [facility] POCT URINALYSIS W/O 2020-08-01 15:14:00 Shannon Vidal [facility] of [facility] [place] NON-STRESS TEST 2020-07-28 15:38:30 Shannon Vidal [facility] POCT URINALYSIS W/O 2020-07-28 14:25:00 Shannon Vidal [facility] sit of [facility] [place] NON-STRESS TEST 2020-07-26 14:47:01 Fidelia Beasley [facility] NON-STRESS TEST 2020-07-21 14:58:02 Shannon Vidal [facility] POCT URINALYSIS W/O 2020-07-21 14:34:00 Shannon Vidal [facility] of [facility] [place] NON-STRESS TEST 2020 14:45:43 Shannon Vidal [facility] POCT URINALYSIS W/O 2020 14:42:00 Shannon Vidal [facility] sit of [facility] [place] [place] NON-STRESS TEST 2020-07-14 15:28:30 Shannon Vidal [facility] POCT URINALYSIS W/O 2020-07-14 14:55:00 Shannon Vidal [facility] of [facility] [place] NON-STRESS TEST 2020-07-11 14:55:51 Akinsipe, Kamille C U [facility] POCT URINALYSIS W/O 2020-07-11 14:09:00 Shannon Vidal [facility] sit of [facility] [facility] [place] [place] NON-STRESS TEST 2020-07-07 15:54:03 Akinsipe, Kamille [facility] W/O 2020-07-07 15:12:00 Shannon Vidal [facility] sit of [facility] [place] [place] NON-STRESS TEST 2020-07-04 17:02:11 Shannon Vidal [facility] POCT URINALYSIS W/O 2020-07-04 15:23:00 Shannon Vidal [facility] NON-STRESS TEST 2020-06-30 15:11:39 Shannon Vidal [facility] POCT URINALYSIS W/O 2020-06-30 14:33:00 Shannon Vidla [facility] NON-STRESS TEST 2020-06-27 14:03:29 Shannon Vidal [facility] POCT URINALYSIS W/O 2020-06-27 13:54:00 Shannon Vidal [facility] NON-STRESS TEST 2020-06-23 18:57:11 Shannon Vidal [facility] POCT URINALYSIS W/O 2020-06-23 18:40:00 Shannon Vidal [facility] NON-STRESS TEST 2020-06-20 16:52:46 Shannon Vidal [facility] POCT URINALYSIS W/O 2020-06-20 15:46:00 Shannon Vidal [facility] POCT URINALYSIS W/O 2020-06-07 15:24:00 Shannon Vidal [facility] POCT URINALYSIS W/O 2020-04-26 15:45:00 Shannon Vidal [facility] QUAD SCRN 2020-02-25 14:38:00 Shannon Vidal [facility] POCT URINALYSIS W/O 2020-02-25 00:00:00 Shannon Vidal [facility] SECOND AND THIRD 2020-02-17 17:09:00 Shannon Vidal [facility] TRIMESTER ULTRASOUND Medical [facility] PPD (TB) 2020-01-11 13:09:31 Shannon Vidal [facility] GLUCOSE 1 HOUR POST 2020-01-07 16:46:00 Shannon Vidal [facility] CBC WITH DIFF 2020-01-07 16:46:00 Shannon Vidal [facility] HEPATITIS B SURFACE 2020-01-07 16:46:00 Shannon Vidal [facility] ANTIGEN [facility] HIV 1/2 AG-AB WITH REFLEX 2020-01-07 16:46:00 Shannon Vidal [facility] GALV ONLY - SYPHILIS 2020-01-07 16:46:00 Shannon Vidal [facility] IGG/IGM [facility] SARS-COV-2 IGG 2020-01-07 16:46:00 Shannon Vidal [facility] PAP SMEAR-LIQUID BASED-CP 2020-01-07 16:16:00 Shannon Vidal [facility] POCT TEST 2020-01-07 15:30:00 Shannon Vidal [facility] POCT URINALYSIS W/O 2020-01-07 15:30:00 Shannon Vidal [facility] SPECIFIC GRAVITY [facility] FLU VACC ([phone]), 6+ 2020-01-07 15:29:37 Shannon Vidal [facility] MONTHS, IM, QUAD [facility] Encounters Start End Encounter Admission Attending Care Care Encounter Source Date/Time Date/Time Type Type Clinicians Facility Department ID 2021-02-12 Outpatient [facility] [id number] Univers [facility]22-[facility]-16 2022-01-16 [facility] 1.2.840.114 [id number] Univers 00:00:00 00:00:00 Kamille Kaplan BACK CLOSER [facility].13.10 [facility] 4.2.7.2.686 Michael as MATERNAL [phone] Med ical & CHILD [address] [place] [address] 2022-01-04 2022-01-04 Outpatient R AUGIE [facility] [id number] Univers 10:30:00 10:30:00 KAMILLE go [facility] 2022-01-03 2022-01-03 Outpatient R GALE [facility] [id number] Univers 13:00:00 13:48:20 FIDELIA lowery [facility] 2022-01-03 2022-01-03 Office Gale [facility] 1.2.840.114 [id number] Univers 13:00:00 13:48:20 Visit Fidelia Dm BACK CLOSER 350.1.13.10 ity of REGIONAL 4.2.7.2.686 Michael as MATERNAL [id number] [facility] & [address] 2021-04-20 2021-04-20 [facility] [id number] Univers 09:45:00 09:45:[address] [facility] 2020-10-12 2020-10-12 Outpatient [facility] [id number] Univers 15:00:00 15:00:[address] [facility] 2020-09-22 2020-09-22 Outpatient D[facility] [id number] Univers 15:00:00 15:00:[address] [facility] 2020-09-21 2020-09-21 Telephone [facility] 1.2.840.114 [id number] Univers 00:00:00 00:00:00 Shannon Jung BACK CLOSER 350.1.13.10 it y of REGIONAL 4.2.7.2.686 Michael as MATERNAL [id number] [address] 2020-09-20 2020-09-20 Office [facility] 1.2.572.947 [id number] Univers 15:18:29 16:15:07 Visit Shannon Jung BACK CLOSER 350.1.13.10 it y of REGIONAL 4.2.7.2.686 Michael as MATERNAL [id number] [address] 2020-09-20 2020-09-20 Outpatient Dm [facility] [id number] Univers 15:15:00 15:15:[address] [facility] 2020-08-30 2020-08-30 Routine [facility] 1.2.845.167 [id number] Univers 12:58:29 13:41:56 Shannon Jung BACK CLOSER 350.1.13.10 i ty of Visit REGIONAL 4.2.7.2.686 Michael as MATERNAL [id number] Med ical & CHILD [address] [place] [address] 2020-08-30 2020-08-30 Outpatient R YOUNG [facility] [id number] Univers 13:15:00 13:15:[address] [facility] 2020-08-16 2020-08-16 Nurse Visit, Dayron Nurse [facility] 1.2 .840.114 [id number] Univers 13:42:06 13:57:06 Visit Fidelia Beasley BACK CLOSER 350.1.13.10 ity of REGIONAL 4.2.7.2.686 Michael as MATERNAL [id number] [facility] & CHILD [address] [place] [address] 2020-08-16 2020-08-16 Outpatient R GALE [facility] [id number] Univers 13:30:00 13:30:00 FIDELIA daniel o f [facility] 2020-08-08 2020-08-09 Anesthesia Jose Luis Wood 1.2. 840.114 [id number] Univers 23:28:00 18:22:00 Event Joaquin Watkins 350.1.13.10 [place] [id number] [address] 2020-08-09 2020-08-09 Surgery TARI Hardin 1.2.840.114 [id number] Univers 12:10:00 13:59:00 Amanda SEARS 350.1.13.10 [place] [id number] [address] 2020-08-04 2020-08-04 Routine Risk, Dcb-Djlcl-Yx/High [facility] 1. 2.840.114 [id number] Univers 09:54:05 11:04:54 Shannon Vidal BACK CLOSER 350.1.13.10 ity of Visit Jillian Lugo REGIONAL 4.2.7.2.686 [place] MATERNAL [id number] [facility] & CHILD [address] [place] [address] 2020-08-04 2020-08-04 Outpatient R [facility] [id number] Univers 09:45:00 09:45:00 ity of [facility] 2020-08-01 2020-08-01 Routine [facility] 1.2.315.186 [id number] Univers 10:00:12 10:15:12 Shannon Jung BACK CLOSER 350.1.13.10 i ty of Visit REGIONAL 4.2.7.2.686 Michael as MATERNAL [id number] [facility] & [address] 2020-08-01 2020-08-01 Outpatient R [facility] [id number] Univers 10:00:00 10:00:00 [facility] 2020-07-28 2020-07-28 Routine [facility] 1.2.229.940 [id number] Univers 09:08:16 10:04:45 Shannon Jung BACK CLOSER 350.1.13.10 i ty of Visit REGIONAL 4.2.7.2.686 Michael as MATERNAL [id number] [address] 2020-07-28 2020-07-28 [facility] [id number] Univers 09:45:00 09:45:00 SHANNON [facility] 2020-07-26 2020-07-26 Routine Fidelia Beasley [facility] 1.2.840 .114 [id number] Univers 08:03:09 09:08:06 Shannon Vidal BACK CLOSER 350.1.13.10 ity of Visit REGIONAL 4.2.7.2.686 Michael as MATERNAL [id number] [facility] & [address] 2020-07-26 2020-07-26 [facility] [id number] Univers 08:00:00 08:00:[address] [facility] 2020-07-25 2020-07-25 [facility] [id number] Univers 08:30:00 08:30:00 SHANNON [facility] 2020-07-22 2020-07-22 Senior Formulation Scientist [facility]trasound, [facility] 1.2 .840.114 [id number] Univers 15:40:34 16:10:34 Visit Kam, Amanda M BACK CLOSER 350.1.13.10 ity of REGIONAL 4.2.7.2.686 Michael as MATERNAL [id number] [facility] ical & CHILD [address] [facility] 2020-07-22 2020-07-22 Outpatient P [facility] [id number] Univers 15:30:00 15:30:[address] [facility] 2020-07-21 2020-07-21 Routine [facility] 1.2.395.076 [id number] Univers 09:16:44 09:57:58 Shannon N BACK CLOSER 350.1.13.10 i ty of Visit REGIONAL 4.2.7.2.686 Michael as MATERNAL [id number] [facility] & CHILD [address] [place] [address] 2020-07-21 2020-07-21 Outpatient R [facility] [id number] Univers 09:15:00 09:15:[address] [facility] 2020-07-20 2020-07-20 Telephone [facility] 1.2.840.114 [id number] Univers 00:00:00 00:00:00 Shannon Jung BACK CLOSER 350.1.13.10 it y of REGIONAL 4.2.7.2.686 Michael as MATERNAL [id number] [facility] & CHILD [address] [place] [address] 2020-07-19 2020-07-19 Outpatient R AUGIE [facility] [id number] Univers 15:00:00 15:00:00 KAMILLE lowery f [facility] 2020-07-19 2020-07-19 Outpatient P [facility] [id number] Univers 09:00:00 09:00:[address] 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 114 [id number] Univers 08:40:30 08:40:42 Visit Kamille Mckeon BACK CLOSER 350.1.13. 10 ity of REGIONAL 4.2.7.2.686 Michael as MATERNAL [id number] [facility] [address] [place] [address] 2020-07-19 2020-07-19 Telephone [facility] 1.2.840.114 [id number] Univers 00:00:00 00:00:00 Shannon N BACK CLOSER 350.1.13.10 it y of REGIONAL 4.2.7.2.686 Michael as MATERNAL [phone] [facility] & CHILD [address] [place] [address] 2020 2020 Routine [facility] 1.2.830.086 [id number] Univers 09:14:42 10:18:45 Shannon N BACK CLOSER 350.1.13.10 i ty of Visit REGIONAL 4.2.7.2.686 Michael as MATERNAL [id number] [facility] & CHILD [address] [place] [address] 2020 2020 Outpatient R [facility] [id number] Univers 09:00:00 09:00:[address] [facility] 2020-07-14 2020-07-14 Routine [facility] 1.2.500.595 [id number] Univers 09:38:28 10:25:59 Shannon N BACK CLOSER 350.1.13.10 i ty of Visit REGIONAL 4.2.7.2.686 Michael as MATERNAL [id number] [facility] & [address] 2020-07-14 2020-07-14 Outpatient R [facility] [id number] Univers 09:30:00 09:30:[address] [facility] 2020-07-11 2020-07-11 Routine [facility] 1.2.842.395 [id number] Univers 08:40:13 09:42:28 Kamille C BACK CLOSER 350.1.13.10 ity of Visit REGIONAL 4.2.7.2.686 Michael as MATERNAL [id number] [facility] & [address] 2020-07-11 2020-07-11 Outpatient R [facility] [id number] Univers 08:30:00 08:30:[address] [facility] 2020-07-07 2020-07-07 [facility]ine [facility] 1.2.255.996 [id number] Univers 09:45:15 10:00:15 Kamille C BACK CLOSER 350.1.13.10 ity of Visit REGIONAL 4.2.7.2.686 Michael as MATERNAL [id number] [facility] & [address] 2020-07-07 2020-07-07 Outpatient R AUGIE [facility] [id number] Univers 09:45:00 09:45:00 KAMILLE ity o f [facility] 2020-07-04 2020-07-04 Routine [facility] 1.2.436.871 [id number] Univers 10:08:23 10:52:27 Shannon N BACK CLOSER 350.1.13.10 i ty of Visit REGIONAL 4.2.7.2.686 Michael as MATERNAL [id number] [address] 2020-07-04 2020-07-04 [facility] [id number] Univers 10:15:00 10:15:[address] [facility] 2020-06-30 2020-06-30 Routine [facility] 1.2.695.414 [id number] Univers 09:20:02 10:05:40 Shannon N BACK CLOSER 350.1.13.10 i ty of Visit REGIONAL 4.2.7.2.686 Michael as MATERNAL [id number] [address] 2020-06-30 2020-06-30 Outpatient R YOUNG [facility] [id number] Univers 09:45:00 09:45:[address] [facility] 2020-06-28 2020-06-28 [facility] [id number] Univers 09:00:00 09:00:[address] [facility] 2020-06-27 2020-06-27 Routine [facility] 1.2.208.541 [id number] Univers 08:16:44 09:35:29 Shannon N BACK CLOSER 350.1.13.10 i ty of Visit REGIONAL 4.2.7.2.686 Michael as MATERNAL [id number] [address] 2020-06-27 2020-06-27 [facility] [id number] Univers 08:15:00 08:15:[address] [facility] 2020-06-23 2020-06-23 Routine [facility] 1.2.909.292 [id number] Univers 12:34:15 13:13:50 Shannon N BACK CLOSER 350.1.13.10 i ty of Visit [facility] 4.2.7.2.686 Michael as MATERNAL [id number] [facility] CH[facility] [address] [place] [address] 2020-06-23 2020-06-23 Outpatient D[facility] [id number] Univers 12:30:00 12:30:[address] [facility] 2020-06-21 2020-06-21 Senior Formulation Scientist Ultrasound, [facility] 1.2 .840.114 [id number] Univers 08:57:51 09:27:51 Visit Shruthi Tirado BACK CLOSER 350.1. 13.10 ity of REGIONAL 4.2.7.2.686 Michael as MATERNAL [id number] [facility] & CHILD [address] [place] [address] 2020-06-21 2020-06-21 Outpatient P JASBIR [facility] [id number] Univers 09:00:00 09:00:00 JENNIFER it y of SHRUTHI [facility] 2020-06-20 2020-06-20 Routine [facility] 1.2.377.771 [id number] Univers 09:37:32 10:27:20 Shannon Jung BACK CLOSER 350.1.13.10 i ty of Visit REGIONAL 4.2.7.2.686 Michael as MATERNAL [id number] [facility] & CHILD [address] [place] [address] 2020-06-20 2020-06-20 Outpatient Dm [facility] [id number] Univers 10:15:00 10:15:[address] [facility] 2020-06-07 2020-06-07 Routine [facility] 1.2.133.655 [id number] Univers 09:09:02 09:56:21 Shannon N BACK CLOSER 350.1.13.10 i ty of Visit [facility] 4.2.7.2.686 Michael as MATERNAL [phone] Med ical & CHILD [address] [place] [address] 2020-06-07 2020-06-07 Outpatient R YOUNG [facility] [id number] Univers 09:15:00 09:15:[address] [facility] 2020-05-31 2020-05-31 Outpatient R YOUNG [facility] [id number] Univers 10:45:00 10:45:[address] [facility] 2020-05-24 2020-05-24 [facility] [id number] Univers 08:00:00 08:00:[address] [facility] 2020-04-27 2020-04-27 Telephone [facility] 1.2.840.114 [id number] Univers 00:00:00 00:00:00 Shannon Jung BACK CLOSER 350.1.13.10 it y of [facility] 4.2.7.2.686 Michael as MATERNAL [id number] [facility] CHILD [address] [place] [address] 2020-04-26 2020-04-26 Routine [facility] 1.2.685.741 [id number] Univers 09:26:03 10:04:31 Shannon Jung BACK CLOSER 350.1.13.10 i ty of Visit [facility] 4.2.7.2.686 Michael as MATERNAL [id number] [facility] CHILD [address] [place] [address] 2020-04-26 2020-04-26 Senior Formulation Scientist Ultrasound, Batsheva [facility] 1.2 .840.114 [id number] Univers 08:54:55 09:24:55 Visit Shruthi Tirado BACK CLOSER 350.1. 13.10 ity of [facility] 4.2.7.2.686 Michael as MATERNAL [id number] [facility] 369 [facility] 2020-04-26 2020-04-26 Outpatient P [facility] [id number] Univers 09:00:00 09:00:00 [facility] 2020-04-25 2020-04-25 Telephone [facility] 1.2.840.114 [id number] Univers 00:00:00 00:00:00 Shannon Erich BACK CLOSER 350.1.13.10 it y of REGIONAL 4.2.7.2.686 Michael as MATERNAL [phone] [facility] ical & CHILD 107 [facility] 2020-04-11 2020-04-11 Katherine [facility] 1.2.910.179 [id number] Univers 00:00:00 00:00:00 Shannon Erich BACK CLOSER 350.1.13.10 it y of REGIONAL 4.2.7.2.686 Michael as MATERNAL [phone] [facility] ical & CHILD 107 [facility] 2020-04-07 2020-04-07 Katherine [facility] 1.2.496.728 [id number] Univers 00:00:00 00:00:00 Shannon Erich BACK CLOSER 350.1.13.10 it y of REGIONAL 4.2.7.2.686 Michael as MATERNAL [id number] [facility] & CHILD [address] [place] [address] 2020-03-29 2020-03-29 Senior Formulation Scientist Ultrasound, [facility] 1.2 .840.114 [id number] Univers 08:00:30 09:32:13 Visit Thi Steele BACK CLOSER 350.1.13.10 ity of REGIONAL 4.2.7.2.686 Michael as MATERNAL [id number] [facility] 369 [facility] 2020-03-29 2020-03-29 Outpatient P [facility] [id number] Univers 08:00:00 08:00:00 ity of [facility] 2020-03-18 2020-03-18 TelemedicSiomara Cm [facility] 1.2.8 40.114 [id number] Univers 11:15:00 11:30:00 ne Visit James Olivares BACK CLOSER 350.1.13.10 ity of REGIONAL 42.7.2.686 Michael as MATERNAL [id number] [facility] ical & CHILD 110 [facility] 2020-03-18 2020-03-18 Outpatient P JAMES OLIVARES [facility] [id number] Univers 11:15:00 11:15:00 ity of [facility] 2020-03-03 2020-03-03 [facility] [id number] Univers 10:30:00 10:30:[address] [facility] 2020-02-29 2020-02-29 Telephone [facility] 1.2.840.114 [id number] Univers 00:00:00 00:00:00 Shannon N BACK CLOSER 350.1.13.10 it y of REGIONAL 4.2.7.2.686 Michael as MATERNAL [phone] Med ical & CHILD [address] [place] [address] 2020-02-26 2020-02-26 Telephone [facility] 1.2.840.114 [id number] Univers 00:00:00 00:00:00 Shannon N BACK CLOSER 350.1.13.10 it y of REGIONAL 4.2.7.2.686 Michael as MATERNAL [id number] [facility] [address] [place] [address] 2020-02-25 2020-02-25 Routine [facility] 1.2.816.027 [id number] Univers 07:45:50 08:44:55 Shannon N BACK CLOSER 350.1.13.10 i ty of Visit REGIONAL 4.2.7.2.686 Michael as MATERNAL [id number] [facility] & CHILD [address] [place] [address] 2020-02-25 2020-02-25 [facility] [id number] Univers 07:45:00 07:45:[address] [facility] 2020-02-17 2020-02-17 Senior Formulation Scientist 1, [facility] 1.2. 840.114 [id number] Univers 10:54:55 11:19:14 Visit Logan Burton BACK CLOSER 350.1.13.10 ity of REGIONAL 4.2.7.2.686 Michael as MATERNAL [id number] Med ical & CHILD [address] [place] [address] 2020-02-17 2020-02-17 Outpatient P [facility] [id number] Univers 10:45:00 10:45:[address] [facility] 2020-02-17 2020-02-17 Abstract [facility] 1.2.840.114 [id number] Univers 00:00:00 00:00:00 Shannon N BACK CLOSER 350.1.13.10 it y of REGIONAL 4.2.7.2.686 Michael as MATERNAL [id number] Med ical & CHILD 107 [facility] 2020-02-08 2020-02-08 Telephone [facility] 1.2.840.114 [id number] Univers 00:00:00 00:00:00 Shannon N BACK CLOSER 350.1.13.10 it y of REGIONAL 4.2.7.2.686 Michael as MATERNAL [id number] Med ical & CHILD 107 [facility] 2020-02-08 2020-02-08 Telephone [facility] 1.2.840.114 [id number] Univers 00:00:00 00:00:00 Shannon N BACK CLOSER 350.1.13.10 it y of REGIONAL 4.2.7.2.686 Michael as MATERNAL [phone] Med ical & CHILD [address] [place] [address] 2020-02-05 2020-02-05 Telephone [facility] 1.2.840.114 [id number] Univers 00:00:00 00:00:00 Shannon N BACK CLOSER 350.1.13.10 it y of REGIONAL 4.2.7.2.686 Michael as MATERNAL [id number] Med ical & CHILD 125 [facility] 2020-02-04 2020-02-04 Routine [facility] 1.2.708.454 [id number] Univers 09:09:22 09:36:41 Shannon N BACK CLOSER 350.1.13.10 i ty of Visit REGIONAL 4.2.7.2.686 Michael as MATERNAL [phone] Med ical & CHILD 107 [facility] 2020-02-04 2020-02-04 Outpatient R [facility] [id number] Univers 09:30:00 09:30:00 SHANNON daniel of [facility] 2020-01-29 2020-01-29 Refill [facility] 1.2.751.305 [id number] Univers 00:00:00 00:00:00 Shannon N BACK CLOSER 350.1.13.10 it y of REGIONAL 4.2.7.2.686 Michael as MATERNAL [id number] Med ical & CHILD 107 [facility] 2020-01-21 2020-01-21 Telephone [facility] 1.2.840.114 [id number] Univers 00:00:00 00:00:00 Shannon Jung BACK CLOSER 350.1.13.10 it y of REGIONAL 4.2.7.2.686 Michael as MATERNAL [id number] [facility] & [address] 2020-01-21 2020-01-21 Telephone [facility] 1.2.840.114 [id number] Univers 00:00:00 00:00:00 Shannon Jung BACK CLOSER 350.1.13.10 it y of REGIONAL 4.2.7.2.686 Michael as MATERNAL [id number] [facility] & [address] 2020-01-13 2020-01-13 Nurse Visit, Dayron Nurse [facility] 1.2 .840.114 [id number] Univers 08:41:32 08:57:06 Visit Shannon Vidal BACK CLOSER 350.1.13.10 ity of REGIONAL [id number] Michael as MATERNAL [phone] [facility] CH[facility] [address] [place] [address] 2020-01-13 2020-01-13 Outpatient [facility] [id number] Univers 08:30:00 08:30:00 ity of [facility] 2020-01-11 2020-01-11 Nurse Visit, Dayron Nurse [facility] 1.2 .840.114 [id number] Univers 08:00:24 08:55:41 Visit Shannon Vidal BACK CLOSER [id number] ity of [facility] [id number] Michael as MATERNAL [phone] [facility] CH[facility] [address] [place] [address] 2020-01-11 2020-01-11 Outpatient R [facility] [id number] Univers 08:00:00 08:00:00 ity of [facility] 2020-01-11 2020-01-11 Telephone [facility] 1.2.840.114 [id number] Univers 00:00:00 00:00:00 Shannon Jung BACK CLOSER [id number] it y of REGIONAL [id number] Michael as MATERNAL [phone] Med ical & CHILD [address] [place] [address] 2020-01-07 2020-01-08 [facility] [id number] [id number] Univers 10:09:21 11:47:03 Shannon Erich BACK CLOSER [id number] i ty of Visit REGIONAL [id number] Michael as MATERNAL [id number] Med ical & CHILD [address] [place] [address] 2020-01-07 2020-01-07 [facility] [id number] [facility] 09:15:00 09:15:[address] [facility] Results Test Description Test Time Test Comments Results Result Comments Source POCT TEST 2022-01-03 18:20:00 Test Item Value Reference Range Interpretation Comme nts POCT PREG (test code = 1605) Negative On board controls acceptable with C Line (test code = 3574) Yes POCT PREG LOT # (test code = 3575) POCT PREG TEST DATE (test code = 3576) [facility] [id number] 18:20:00 Test Item Value Reference Range Interpretation Comments POCT PREG (test code = 1605) Negative On board controls acceptable with C Yes Line (test code = 3574) POCT PREG LOT # (test code = 3575) POCT PREG TEST DATE (test code = 3576) [facility] [id number] 18:20:00 Test Item Value Reference Range Interpretation Comments POCT PREG (test code = 1605) Negative On board controls acceptable with C Yes Line (test code = 3574) POCT PREG LOT # (test code = 3575) POCT PREG TEST DATE (test code = 3576) [facility] [id number] 18:20:00 Test Item Value Reference Range Interpretation Comments POCT PREG (test code = 1605) Negative On board controls acceptable with C Yes Line (test code = 3574) POCT PREG LOT # (test code = 3575) POCT PREG TEST DATE (test code = 3576) [facility] [id number] 20:40:00 Test Item Value Reference Range Interpretation Comments POCT PREG (test code = 1605) Negative On board controls acceptable with C Yes Line (test code = 3574) POCT PREG LOT # (test code = 3575) POCT PREG TEST DATE (test code = 3576) Lab Interpretation (test code = Normal 33090-7) [facility] [id number] 20:40:00 Test Item Value Reference Range Interpretation Comments POCT PREG (test code = 1605) Negative On board controls acceptable with C Yes Line (test code = 3574) POCT PREG LOT # (test code = 3575) POCT PREG TEST DATE (test code = 3576) Lab Interpretation (test code = Normal 18254-0) [facility] [id number] 20:40:00 Test Item Value Reference Range Interpretation Comments POCT PREG (test code = 1605) Negative On board controls acceptable with C Yes Line (test code = 3574) POCT PREG LOT # (test code = 3575) POCT PREG TEST DATE (test code = 3576) Lab Interpretation (test code = Normal 22924-4) [facility] WITH [id number] 11:25:16 Test Item Value Reference Range Interpretation Comments WBC (test code = See_Comment [Automated 6690-2) message] The system which generated this result transmitted reference range : 4.30 - 11.10 10*3/?L. The reference range was not used to interpret this result as normal/abnormal . RBC (test code = See_Comment L [Automated 889-8) message] The system which generated this result transmitted reference range : 3.93 - 5.25 10*6/?L. The reference range was not used to interpret this result as normal/abnormal . HGB (test code = 9.1 g/dL 11.6-15.0 L 718-7) HCT (test code = 27.4 % 35.7-45.2 L 4544-3) MCV (test code = 92.3 fL 80.6-95.5 787-2) MCH (test code = 30.6 pg 25.9-32.8 785-6) MCHC (test code = 33.2 g/dL 31.6-35.1 786-4) RDW-SD (test code = 49.8 fL 39.0-49.9 08867-9) RDW-CV (test code = 14.7 % 12.0-15.5 788-0) PLT (test code = See_Comment [Automated 777-3) message] The system which generated this result transmitted reference range : 166 - 358 10*3/?L. The reference range was not used to interpret this result as normal/abnormal . MPV (test code = 9.1 fL 9.5-12.9 L 02003-7) NRBC/100 WBC (test See_Comment [Automat ed code = 1571056631) message] The system which generated this result transmitted reference range : 0.0 - 10.0 /100 WBCs. The reference range was not used to interpret this result as normal/abnormal . NRBC x10^3 (test code <0.01 See_Comment [Auto mated = 5407630346) message] The system which generated this result transmitted reference range : 10*3/?L. The reference range was not used to interpret this result as normal/abnormal . GRAN MAT (NEUT) % 86.8 % (test code = 770-8) IMM GRAN % (test code 0.50 % = 1607486397) LYMPH % (test code = 10.7 % 736-9) MONO % (test code = 1.8 % 5905-5) EOS % (test code = 0.2 % 713-8) BASO % (test code = 0.0 % 706-2) GRAN MAT x10^3(ANC) 5.21 10*3/uL 1.88-7.09 (test code = 0308784264) IMM GRAN x10^3 (test 0.03 10*3/uL 0.00-0.06 code = 0692376357) LYMPH x10^3 (test 0.64 10*3/uL 1.32-3.29 L code = 731-0) MONO x10^3 (test code 0.11 10*3/uL 0.33-0.92 L = 742-7) EOS x10^3 (test code <0.03 0.03-0.39 L = 711-2) BASO x10^3 (test code <0.03 0.01-0.07 = 704-7) BASO STIPPLING (test Present A code = 703-9) BANDS (test code = MARKED INCREASED A 5303519550) DOHLE BODIES (test Present A code = 7792-5) Lab Interpretation Abnormal (test code = 15169-0) [facility] COVID [id number] 05:45:47COVID DMT InterpretationInterpretation/Recommendations: Molecular NAAT Tests for Active Infection with the SARS-CoV-2 Virus: The patient has currently tested negative for the SARS-CoV-2 virus that causes COVID-19 illness. This most likely indicates that the patient does not have an active infection with the SARS-CoV-2 virus. However, infection is not completely ruled out as the false negative rate for molecular NAAT testing using a nasopharyngeal sample can be up to 30%, mostly dependent on the timing of sample collection in relation to illness onset and any deficiencies in sampling techniques. If the patient has symptoms concerning for COVID-19 illness, a repeat NAAT test (PCR, Rapid ID Now, etc.) should be performed, at which time the SARS-CoV-2 virus - if present - may have reached a detectable viral load (usually peaking by the end of the first week of symptoms). Tests for IgM and/or IgG Antibodies to the SARS-CoV-2 Virus: The patient has tested positive for SARS-CoV-2 IgG antibodies, suggestive of a past infection. While IgG antibodies to SARS-CoV-2 may provide some degree of immunity, atthis time the strength and duration of the antibody response is unknown. Of note, IgG antibody positivity may be in response to vaccination if the patient has been vaccinated at least 1-2 weeks before the sample was collected for the antibody test. Interpretation Result Comments:These interpretation comments are based upon all COVID-19 testing the patient has had at [facility], including molecular NAAT testing (more commonly known asPCR testing and Rapid ID Now testing) and antibody testing. It does not take into account any testing that a patient has had outside of the [facility] medical record. [facility] LABORATORY SERVICESCOVID ResultsSARS -CoV-2 NAAT (no units) ? ? Date ? Value ? 07/19/2020 ? NotDetected ? SARS-CoV-2 Rapid ID NOW (no units) ? ? Date ? Value ? 08/08/2020 ? Not Detected ? CoV-2 IgG (no units) ? ? Date ? Value ? 2020 ? Positive (A) ? ? ? 01/07/2020 ? Negative? ? ? [facility] LABORATORY SERVICESUnUniversity HospitalCBC with [id number] 10:34:58 Test Item Value Reference Range Interpretation Comments WBC (test code = See_Comment H [Automated 8890-2) message] The system which generated this result transmitted reference range : 4.30 - 11.10 10*3/?L. The reference range was not used to interpret this result as normal/abnormal . RBC (test code = See_Comment L [Automated 419-8) message] The system which generated this result transmitted reference range : 3.93 - 5.25 10*6/?L. The reference range was not used to interpret this result as normal/abnormal . HGB (test code = 8.7 g/dL 11.6-15.0 L 718-7) HCT (test code = 26.5 % 35.7-45.2 L 4544-3) MCV (test code = 93.0 fL 80.6-95.5 787-2) MCH (test code = 30.5 pg 25.9-32.8 785-6) MCHC (test code = 32.8 g/dL 31.6-35.1 786-4) RDW-SD (test code = 49.4 fL 39.0-49.9 65837-9) RDW-CV (test code = 14.6 % 12.0-15.5 788-0) PLT (test code = See_Comment [Automated 777-3) message] The system which generated this result transmitted reference range : 166 - 358 10*3/?L. The reference range was not used to interpret this result as normal/abnormal . MPV (test code = 9.7 fL 9.5-12.9 66951-3) NRBC/100 WBC (test See_Comment [Automat ed code = 5251279748) message] The system which generated this result transmitted reference range : 0.0 - 10.0 /100 WBCs. The reference range was not used to interpret this result as normal/abnormal . NRBC x10^3 (test code <0.01 See_Comment [Auto mated = 9424015822) message] The system which generated this result transmitted reference range : 10*3/?L. The reference range was not used to interpret this result as normal/abnormal . GRAN MAT (NEUT) % 87.2 % (test code = 770-8) IMM GRAN % (test code 0.50 % = 8477717946) LYMPH % (test code = 6.3 % 736-9) MONO % (test code = 5.9 % 5905-5) EOS % (test code = 0.0 % 713-8) BASO % (test code = 0.1 % 706-2) GRAN MAT x10^3(ANC) 13.35 10*3/uL 1.88-7.09 H (test code = 9145595740) IMM GRAN x10^3 (test 0.07 10*3/uL 0.00-0.06 H code = 0688466283) LYMPH x10^3 (test 0.97 10*3/uL 1.32-3.29 L code = 731-0) MONO x10^3 (test code 0.90 10*3/uL 0.33-0.92 = 742-7) EOS x10^3 (test code <0.03 0.03-0.39 L = 711-2) BASO x10^3 (test code <0.03 0.01-0.07 = 704-7) BASO STIPPLING (test Present A code = 703-9) BANDS (test code = MARKED INCREASED A 8050675276) Lab Interpretation Abnormal (test code = 00389-4) [facility] IMMUNE [id number] 03:50:59 Test Item Value Reference Range Interpretation Comments RHIG CANDIDATE? No- see comment Patient i s not a (test code = candidate for R hIg- 5055) Patient is Rh Positive.Perfor med at [facility] Laboratory Services - [facility] Blood [address] [address]Az[address] Free: [phone] A No. [id number] [facility] WITH [id number] 03:21:31 Test Item Value Reference Range Interpretation Comments WBC (test code = See_Comment H [Automated 90-2) message] The system which generated this result transmit marvel reference range : 4.30 - 11.10 10*3/?L. The reference range was not used to interpret this result as normal/abnormal . RBC (test code = See_Comment L [Automated 379-8) message] The system which generated this result transmit marvel reference range : 3.93 - 5.25 10*6/?L. The reference range was not used to interpret this result as normal/abnormal . HGB (test code = 10.2 g/dL 11.6-15.0 L 718-7) HCT (test code = 30.2 % 35.7-45.2 L 4544-3) MCV (test code = 94.1 fL 80.6-95.5 787-2) MCH (test code = 31.8 pg 25.9-32.8 785-6) MCHC (test code = 33.8 g/dL 31.6-35.1 786-4) RDW-SD (test code = 50.1 fL 39.0-49.9 H 41526-2) RDW-CV (test code = 14.6 % 12.0-15.5 788-0) PLT (test code = See_Comment [Automated 777-3) message] The system which generated this result transmit marvel reference range : 166 - 358 10*3/ ?L. The reference range was not u sed to interpret th is result as normal/abnormal . MPV (test code = 9.5 fL 9.5-12.9 66654-5) NRBC/100 WBC (test See_Comment [Automat ed code = 1194448846) message] The system which generated this result transmit marvel reference range : 0.0 - 10.0 /100 WBCs. The reference range was not used to interpret this result as normal/abnormal . NRBC x10^3 (test code <0.01 See_Comment [Auto mated = 7496023345) message] The system which generated this result transmit marvel reference range : 10*3/?L. The reference range was not used to interpret this result as normal/abnormal . GRAN MAT (NEUT) % 89.1 % (test code = 770-8) IMM GRAN % (test code 0.50 % = 2282844679) LYMPH % (test code = 4.2 % 736-9) MONO % (test code = 6.1 % 5905-5) EOS % (test code = 0.0 % 713-8) BASO % (test code = 0.1 % 706-2) GRAN MAT x10^3(ANC) 16.08 10*3/uL 1.88-7.09 H (test code = 4790849564) IMM GRAN x10^3 (test 0.09 10*3/uL 0.00-0.06 H code = 9265777134) LYMPH x10^3 (test code 0.75 10*3/uL 1.32-3.29 L = 731-0) MONO x10^3 (test code 1.10 10*3/uL 0.33-0.92 H = 742-7) EOS x10^3 (test code = <0.03 0.03-0.39 L 711-2) BASO x10^3 (test code <0.03 0.01-0.07 = 704-7) BANDS (test code = Increased A 4166576099) Lab Interpretation Abnormal (test code = 66597-7) [facility] - SYPHILIS [id number] 13:53:51 Test Item Value Reference Range Interpretation Comments Syphilis IgG/IgM (test Non-reactive Non-reactive code = 83904-6) AUGIE (test code = AUGIE) Non-reactive - No serologic evidence of T. pallidum infection. Cannot exclude incubating or early syphilis. Submit a second specimen in 2-4 weeks if syphilis is clinically suspected. Equivocal - Further testing to follow. Reactive - Further testing to follow. Lab Interpretation (test Normal code = 05844-8) [facility] [id number] 04:52:16Ten Jose Luis Harper MD ? ? 08/08/2020 11:54 PM Central Neuraxial Block Performed by: Jose Luis Wood MDAuthorized by: Antoine Harry MD Reason for Block: ?Patient request and Labor analgesiaStaff: ?Anesthesiologist: ?Antoine Harry MD ?Resident/MEDICAL CASE WORKER: ?Jose Luis Wood MD ?Performed by: ?Resident/MEDICAL CASE WORKER patient identified, IV checked, risks and benefits explained, monitors and equipment checked, timeout performed, ob surgical consent/approval, pre-op evaluation, surgical consent, site marked, anesthesia consent and OB/surgical consent verifiedEpidural: ?Patient Position: ?Sitting ?Prep: Betadine ? ?Monitoring: ?Heart rate, continuous pulse ox, heart rate / toco and NIBP ?Location: ?L umbar (1-5) ?Lumbar: ?L2-L3 ?Approach: ?MidlineNeedle and Epidural Catheter: ?Epidural Kit: ?BBraun ?Needle Type: ?Tuohy ?Needle Length: ?3.5 in (8.89 cm) ?Needle Insertion Depth: ?8 Assessment: ?Sensory Level: ?Above F15Bktxi: ? Date Anesthesia Start: 08/08/2020abor Room [facility] Ernesto Menjivar is a30 year old female here at 39w0d weeks gestation for Vaginal delivery Patient identified, preopped and consented prior to start of anesthesia care. ?Time out completed.With patient sitting, back prepped with aseptic technique with betadine x3 and drape in sterile fashion. ?Infiltrated skin with 1% lidocaine 3mL. Epidural placed after 2 attempt, catheter threaded without complications or paresthesia. First attempt at L3-L4, unable to reach epidural space. No difficulty at L2-K7Iukgmefhiv negativeTest dose given at 23:42 hrs - negative for symptoms.Epidural sterile dressing applied and instructions given to patient.No apparent complications. JEROMY pump set as continuous epidural infusion with PCEA:Continuous rate: 12 mL/hrPCEA demand dose: 4 mLPCEA demand dose lockout: 15 mins1 hr dose limit:32 mLUnUniversity HospitalHepatitis B Surface [id number] 15:24:20 Test Item Value Reference Range Interpretation Comments HBsAg Semi-Quantitative (test code = Negative Negative 5195-3) [facility] Austin[facility] and Screen - ONCE [id number] 14:49:03 Test Item Value Reference Range Interpretation Comments ABO & RH (test code A POSITIVE Performe d at [facility] = 20) Laboratory Serv [facility] Blood Bank3 [address] [facility] [address]cm[address] Free: [phone] A No. [id number] IAT (test code = Negative Performed a t [facility] 1185) Laboratory Serv [facility] Blood Bank3 [address] [facility] [address]Fbrf Free: [phone] A No. [id number] [facility] Austin[facility] with [id number] 14:12:24 Test Item Value Reference Range Interpretation Comments WBC (test code = See_Comment [Automated 3790-2) message] The sy stem which generated this result transmitted reference range : 4.30 - 11.10 10*3/?L. The reference range was not used to interpret this result as normal/abnormal . RBC (test code = See_Comment [Automated 947-8) message] The sy stem which generated this result transmitted reference range : 3.93 - 5.25 10*6/?L. The reference range was not used to interpret this result as normal/abnormal . HGB (test code = 12.4 g/dL 11.6-15.0 718-7) HCT (test code = 37.4 % 35.7-45.2 4544-3) MCV (test code = 91.9 fL 80.6-95.5 787-2) MCH (test code = 30.5 pg 25.9-32.8 785-6) MCHC (test code = 33.2 g/dL 31.6-35.1 786-4) RDW-SD (test code = 48.1 fL 39.0-49.9 38192-9) RDW-CV (test code = 14.4 % 12.0-15.5 788-0) PLT (test code = See_Comment [Automated 777-3) message] The sy stem which generated this result transmitted reference range : 166 - 358 10*3/ ?L. The reference r giselle was not used to interpret this result as normal/abnormal . MPV (test code = 9.3 fL 9.5-12.9 L 68125-2) NRBC/100 WBC (test See_Comment [Automat ed code = 0869249882) message] The system which generated this result transmitted reference range : 0.0 - 10.0 /100 WBCs. The refer ence range was not u sed to interpret th is result as normal/abnormal . NRBC x10^3 (test code See_Comment [Auto mated = 3754037719) message] The s ystem which generated this result transmitted reference range : 10*3/?L. The reference range was not used to interpret this result as normal/abnormal . GRAN MAT (NEUT) % 68.7 % (test code = 770-8) IMM GRAN % (test code 0.40 % = 0902785027) LYMPH % (test code = 22.5 % 736-9) MONO % (test code = 7.4 % 5905-5) EOS % (test code = 0.9 % 713-8) BASO % (test code = 0.1 % 706-2) GRAN MAT x10^3(ANC) 4.70 10*3/uL 1.88-7.09 (test code = 5166290399) IMM GRAN x10^3 (test 0.03 10*3/uL 0.00-0.06 code = 1686611617) LYMPH x10^3 (test code 1.54 10*3/uL 1.32-3.29 = 731-0) MONO x10^3 (test code 0.51 10*3/uL 0.33-0.92 = 742-7) EOS x10^3 (test code = 0.06 10*3/uL 0.03-0.39 711-2) BASO x10^3 (test code <0.03 0.01-0.07 = 704-7) Lab Interpretation Abnormal (test code = 25061-8) [facility] (ID NOW RAPID TESTING)2020-08-08 12:02:12 Test Item Value Reference Range Interpretation Comments SARS-CoV-2 Rapid ID NOW Not Detected Not Detected (test code = 01396-7) AUGIE (test code = AUGIE) ID NOW COVID-19 Assay is an isothermal nucleic acid amplification test intended for the qualitative detection of nucleic acid from SARS-CoV-2 viral RNA in nasopharyngeal (AUDITING CODER) specimens. It is used under Emergency Use Authorization (EUA) by FDA. The limit of detection (LOD) of the assay is 125 Genome Equivalents/mL. A positive result is indicative of the presence of SARS-CoV-2 RNA. ?Clinical correlation with patient history and other diagnostic information is necessary to determine patient infection status. A negative (Not Detected) result does not preclude SARS-CoV-2 infection. In patients with clinical symptoms and other tests that are consistent with SARS-CoV-2 infection, negative results should be treated as presumptive negative and a new specimen should be tested with alternative PCR molecular test. Invalid: Please collect a new specimen for repeat patient testing if clinically indicated. Lab Interpretation Normal (test code = 09127-5) [facility] URINALYSIS W/O SPECIFIC [id number] 21:29:00 Test Item Value Reference Range Interpretation Comments POCT PH U (test code = 3254) . 5-8 POCT U LEUK EST (test code = 3263) 1+ Negative - Negative POCT U NIT (test code = 3262) . Negative - Negative POCT U PROT (test code = 3259) Trace Negative - Negative POCT U GLU (test code = 3256) . Negative - Negative POCT U KETONE (test code = 3258) . Negative - Negative POCT U BLD (test code = 3257) . Negative - Negative [facility] Austin[facility]AL NON-STRESS [id number] 19:23:09NST reactive and reassuring, irregular ctx notedUnUniversity Hospital NON-STRESS [id number] 19:23:09NST reactive and reassuring, irregular ctx notedUnUniversity HospitalPOCT URINALYSIS W/O SPECIFIC GRAVITY 2020-08-04 15:11:00 Test Item Value Reference Range Interpretation Comments POCT PH U (test code = 3254) . 5-8 POCT U LEUK EST (test code = 3263) . Negative - Negative POCT U NIT (test code = 3262) . Negative - Negative POCT U PROT (test code = 3259) Neg Negative - Negative POCT U GLU (test code = 3256) Neg Negative - Negative POCT U KETONE (test code = 3258) . Negative - Negative POCT U BLD (test code = 3257) . Negative - Negative [facility] URINALYSIS W/O SPECIFIC [id number] 15:11:00 Test Item Value Reference Range Interpretation Comments POCT PH U (test code = 3254) . 5-8 POCT U LEUK EST (test code = 3263) . Negative - Negative POCT U NIT (test code = 3262) . Negative - Negative POCT U PROT (test code = 3259) Neg Negative - Negative POCT U GLU (test code = 3256) Neg Negative - Negative POCT U KETONE (test code = 3258) . Negative - Negative POCT U BLD (test code = 3257) . Negative - Negative [facility] NON-STRESS [id number] 15:45:56 Reactive Cat I [facility] URINALYSIS W/O SPECIFIC [id number] 15:14:00 Test Item Value Reference Range Interpretation Comments POCT PH U (test code = 3254) . 5-8 POCT U LEUK EST (test code = . Negative - Negative 3263) POCT U NIT (test code = 3262) . Negative - Negative POCT U PROT (test code = 3259) trace Negative - Negative POCT U GLU (test code = 3256) neg Negative - Negative POCT U KETONE (test code = 3258) . Negative - Negative POCT U BLD (test code = 3257) . Negative - Negative Lab Interpretation (test code = Abnormal 06250-6) [facility] NON-STRESS [id number] 15:41:11 Reactive Cat I [facility] URINALYSIS W/O SPECIFIC [id number] 14:26:00 Test Item Value Reference Range Interpretation Comments POCT PH U (test code = 3254) . 5-8 POCT U LEUK EST (test code = 3263) . Negative - Negative POCT U NIT (test code = 3262) . Negative - Negative POCT U PROT (test code = 3259) trace Negative - Negative POCT U GLU (test code = 3256) neg Negative - Negative POCT U KETONE (test code = 3258) . Negative - Negative POCT U BLD (test code = 3257) . Negative - Negative [facility] NON-STRESS [id number] 14:48:41FHT reactive and reassuringUnCherry County Hospital NON-STRESS TEST 2020-07-21 14:58:40Reactive [facility] SPECIFIC [id number] 14:34:00 Test Item Value Reference Range Interpretation Comments POCT PH U (test code = 3254) . 5-8 POCT U LEUK EST (test code = 3263) . Negative - Negative POCT U NIT (test code = 3262) . Negative - Negative POCT U PROT (test code = 3259) Trace Negative - Negative POCT U GLU (test code = 3256) Neg Negative - Negative POCT U KETONE (test code = 3258) . Negative - Negative POCT U BLD (test code = 3257) . Negative - Negative [facility] NON-STRESS [id number] 15:31:19 Reactive Cat I [facility] NON-STRESS TEST 2020 15:31:19Reactive Cat I [facility] URINALYSIS W/O SPECIFIC [id number] 14:42:00 Test Item Value Reference Range Interpretation Comments POCT PH U (test code = 3254) . 5-8 POCT U LEUK EST (test code = 3263) . Negative - Negative POCT U NIT (test code = 3262) . Negative - Negative POCT U PROT (test code = 3259) Trace Negative - Negative POCT U GLU (test code = 3256) Neg Negative - Negative POCT U KETONE (test code = 3258) . Negative - Negative POCT U BLD (test code = 3257) . Negative - Negative [facility] URINALYSIS W/O SPECIFIC [id number] 14:42:00 Test Item Value Reference Range Interpretation Comments POCT PH U (test code = 3254) . 5-8 POCT U LEUK EST (test code = 3263) . Negative - Negative POCT U NIT (test code = 3262) . Negative - Negative POCT U PROT (test code = 3259) Trace Negative - Negative POCT U GLU (test code = 3256) Neg Negative - Negative POCT U KETONE (test code = 3258) . Negative - Negative POCT U BLD (test code = 3257) . Negative - Negative [facility] NON-STRESS [id number] 15:29:54 Reactive NST. Single small variable deceleration not associated with contraction noted, 30 seconds with pawel to 110. 2 contractions during monitoring, not felt by patient.[facility] URINALYSIS W/O SPECIFIC [id number] 14:56:00 Test Item Value Reference Range Interpretation Comments POCT PH U (test code = 3254) . 5-8 POCT U LEUK EST (test code = . Negative - Negative 3263) POCT U NIT (test code = 3262) . Negative - Negative POCT U PROT (test code = 3259) trace Negative - Negative POCT U GLU (test code = 3256) neg Negative - Negative POCT U KETONE (test code = 3258) . Negative - Negative POCT U BLD (test code = 3257) . Negative - Negative Lab Interpretation (test code = Abnormal 31425-8) [facility] NON-STRESS [id number] 14:56:20NST: cat 1, reactive/reassuring, no ctx, +accels, neg decls, moderate variability [facility] URINALYSIS W/O SPECIFIC [id number] 14:09:00 Test Item Value Reference Range Interpretation Comments POCT PH U (test code = 3254) . 5-8 POCT U LEUK EST (test code = 3263) . Negative - Negative POCT U NIT (test code = 3262) . Negative - Negative POCT U PROT (test code = 3259) Trace Negative - Negative POCT U GLU (test code = 3256) Neg Negative - Negative POCT U KETONE (test code = 3258) . Negative - Negative POCT U BLD (test code = 3257) . Negative - Negative [facility] NON-STRESS [id number] 15:54:33NST: cat 1, reactive/reassuring, no ctx, +accels, neg decls, moderate variability [facility] URINALYSIS W/O SPECIFIC [id number] 15:12:00 Test Item Value Reference Range Interpretation Comments POCT PH U (test code = 3254) . 5-8 POCT U LEUK EST (test code = 3263) . Negative - Negative POCT U NIT (test code = 3262) . Negative - Negative POCT U PROT (test code = 3259) Trace Negative - Negative POCT U GLU (test code = 3256) Neg Negative - Negative POCT U KETONE (test code = 3258) . Negative - Negative POCT U BLD (test code = 3257) . Negative - Negative [facility] NON-STRESS [id number] 17:05:57 [facility] 2020[facility] 17:05[facility]57[facility] [id number] 15:24:00 Test Item Value Reference Range Interpretation Comments POCT PH U (test code = 3254) . 5-8 POCT U LEUK EST (test code = . Negative - Negative 3263) POCT U NIT (test code = 3262) . Negative - Negative POCT U PROT (test code = 3259) trace Negative - Negative POCT U GLU (test code = 3256) 1+ Negative - Negative POCT U KETONE (test code = 3258) . Negative - Negative POCT U BLD (test code = 3257) .. Negative - Negative Lab Interpretation (test code = Abnormal 55096-7) [facility] URINALYSIS W/O SPECIFIC [id number] 15:24:00 Test Item Value Reference Range Interpretation Comments POCT PH U (test code = 3254) . 5-8 POCT U LEUK EST (test code = . Negative - Negative 3263) POCT U NIT (test code = 3262) . Negative - Negative POCT U PROT (test code = 3259) trace Negative - Negative POCT U GLU (test code = 3256) 1+ Negative - Negative POCT U KETONE (test code = 3258) . Negative - Negative POCT U BLD (test code = 3257) .. Negative - Negative Lab Interpretation (test code = Abnormal 07742-5) [facility] NON-STRESS [id number] 15:12:09 Reactive Cat I [facility] URINALYSIS W/O SPECIFIC [id number] 14:34:00 Test Item Value Reference Range Interpretation Comments POCT PH U (test code = 3254) . 5-8 POCT U LEUK EST (test code = . Negative - Negative 3263) POCT U NIT (test code = 3262) . Negative - Negative POCT U PROT (test code = 3259) trace Negative - Negative POCT U GLU (test code = 3256) 3+ Negative - Negative POCT U KETONE (test code = 3258) . Negative - Negative POCT U BLD (test code = 3257) . Negative - Negative Lab Interpretation (test code = Abnormal 26762-0) [facility] NON-STRESS [id number] 14:50:15 Reactive Cat I [facility] URINALYSIS W/O SPECIFIC [id number] 13:54:00 Test Item Value Reference Range Interpretation Comments POCT PH U (test code = 3254) . 5-8 POCT U LEUK EST (test code = 3263) . Negative - Negative POCT U NIT (test code = 3262) . Negative - Negative POCT U PROT (test code = 3259) Trace Negative - Negative POCT U GLU (test code = 3256) Neg Negative - Negative POCT U KETONE (test code = 3258) . Negative - Negative POCT U BLD (test code = 3257) . Negative - Negative [facility] NON-STRESS [id number] 19:37:43 Reactive Cat I [facility] URINALYSIS W/O SPECIFIC [id number] 18:40:00 Test Item Value Reference Range Interpretation Comments POCT PH U (test code = 3254) . 5-8 POCT U LEUK EST (test code = . Negative - Negative 3263) POCT U NIT (test code = 3262) . Negative - Negative POCT U PROT (test code = 3259) trace Negative - Negative POCT U GLU (test code = 3256) negative Negative - Negative POCT U KETONE (test code = 3258) . Negative - Negative POCT U BLD (test code = 3257) . Negative - Negative [facility] [id number] 16:53:25 Reactive Cat I NST. Single contraction noted, [facility] [id number] 15:47:00 Test Item Value Reference Range Interpretation Comments POCT PH U (test code = 3254) . 5-8 POCT U LEUK EST (test code = 3263) . Negative - Negative POCT U NIT (test code = 3262) . Negative - Negative POCT U PROT (test code = 3259) trace Negative - Negative POCT U GLU (test code = 3256) neg Negative - Negative POCT U KETONE (test code = 3258) . Negative - Negative POCT U BLD (test code = 3257) . Negative - Negative [facility] SPECIFIC [id number] 15:24:00 Test Item Value Reference Range Interpretation Comments POCT PH U (test code = 3254) . 5-8 POCT U LEUK EST (test code = 3263) . Negative - Negative POCT U NIT (test code = 3262) . Negative - Negative POCT U PROT (test code = 3259) Trace Negative - Negative POCT U GLU (test code = 3256) Neg Negative - Negative POCT U KETONE (test code = 3258) . Negative - Negative POCT U BLD (test code = 3257) . Negative - Negative [facility] SPECIFIC [id number] 15:45:00 Test Item Value Reference Range Interpretation Comments POCT PH U (test code = 3254) . 5-8 POCT U LEUK EST (test code = . Negative - Negative 3263) POCT U NIT (test code = 3262) . Negative - Negative POCT U PROT (test code = 3259) trace Negative - Negative POCT U GLU (test code = 3256) negative Negative - Negative POCT U KETONE (test code = 3258) . Negative - Negative POCT U BLD (test code = 3257) . Negative - Negative [facility]/O SPECIFIC [id number] 15:45:00 Test Item Value Reference Range Interpretation Comments POCT PH U (test code = 3254) . 5-8 POCT U LEUK EST (test code = . Negative - Negative 3263) POCT U NIT (test code = 3262) . Negative - Negative POCT U PROT (test code = 3259) trace Negative - Negative POCT U GLU (test code = 3256) negative Negative - Negative POCT U KETONE (test code = 3258) . Negative - Negative POCT U BLD (test code = 3257) . Negative - Negative [facility]/O SPECIFIC [id number] 15:45:00 Test Item Value Reference Range Interpretation Comments POCT PH U (test code = 3254) . 5-8 POCT U LEUK EST (test code = . Negative - Negative 3263) POCT U NIT (test code = 3262) . Negative - Negative POCT U PROT (test code = 3259) trace Negative - Negative POCT U GLU (test code = 3256) negative Negative - Negative POCT U KETONE (test code = 3258) . Negative - Negative POCT U BLD (test code = 3257) . Negative - Negative [facility] [id number] 19:19:00 Test Item Value Reference Interpretation Comments Range RACE (test code = 8652939703) WEIGHT (test code = lbs 3953001857) GEST. AGE (test 15,3 Gestational age reflects code = 0124947882) sample co llection date. Previous prelim inary verified result was 14,2 on 02/26/2020 a t 1151 APPLICATION COORDINATOR INS. DEP (test code No = 8350549627) LMP (test code = 0439699215) US DATE (test code = 8224894911) PE DATE (test code = 5317876873) METHOD (test code = US 2602437384) MULT GEST (test No code = 9369126779) NTD HX (test code = No 4120745536) INITAL OR REPEAT Initial (test code = Testing 9565601057) SMOKER (test code = No 1405533519) INHIBIN (test code 173.2 pg/mL = 2373332688) AFP-MS (test code = 69.6 ng/mL 8746201064) ESTRIOL (test code 1.03 ng/mL = 3876427587) BHCG DOWNS (test mIU/mL code = 4446276275) AFP-MS MoM (test code = 5220871031) BHCG MoM (test code = 5233743176) INHIBIN MoM (test code = 0698185573) E3 MoM (test code = 6865479243) EQ AGE RSK (test < 15.0 less than t hat of a 15.0 code = 8022509016) year old DS APR (test code = 1:651 8601097770) DS INTERP (test See Note The risk of Down code = 2063464573) syndrome is LESS than the screening c ut-off. Nofollow-up is indicated regarding this result. DS RSK (test code = ~ 1:19932 The risk at 4504276350) mid-trimester i s approximately 1 :26325 DS SCRN (test code Negative = 6549041481) TRISOMY 18 (test See Note These serum marker code = 5771774079) levels ar e not consistent with the pattern seen in Trisomy 18 pregnancies. Maternal serum screening will detectapproxima tely 60% of Trisomy 18 pregnancies. ES RSK (test code = ~ 1:42470 The risk of Trisomy 18 2551268859) is approximatel y 1:23942Vco Arslan genevieve 18 cut-off is 1:45 ES SCRN (test code Negative = 8433680213) OSB INTERP (test See Note The materna l serum AFP code = 0709780778) result is ELEVATED for a of thisgestational age. This indicates an increased risk of an open neuraltube defect. Counselling is indicated regarding furth er investigations, including a detailed feta l ultrasound <karla ncated> OSB RSK (test code 1:72 The risk of OSB is equal = 5964171845) to 1:72The OSB cut-off is 2.39 (1:104) OSB SCRN (test code Positive = 6140223914) INTERPRETATION P INTERPRETATIO N: SCREEN (test code = POSITIVE Follow -up for 2629417893) risk of open sp matthew bifida is sugge sted [facility] URINALYSIS W/O SPECIFIC [id number] 14:06:00 Test Item Value Reference Range Interpretation Comments POCT PH U (test code = 3254) . 5-8 POCT U LEUK EST (test code = 3263) . Negative - Negative POCT U NIT (test code = 3262) . Negative - Negative POCT U PROT (test code = 3259) trace Negative - Negative POCT U GLU (test code = 3256) neg Negative - Negative POCT U KETONE (test code = 3258) . Negative - Negative POCT U BLD (test code = 3257) . Negative - Negative [facility] URINALYSIS W/O SPECIFIC [id number] 14:06:00 Test Item Value Reference Range Interpretation Comments POCT PH U (test code = 3254) . 5-8 POCT U LEUK EST (test code = 3263) . Negative - Negative POCT U NIT (test code = 3262) . Negative - Negative POCT U PROT (test code = 3259) trace Negative - Negative POCT U GLU (test code = 3256) neg Negative - Negative POCT U KETONE (test code = 3258) . Negative - Negative POCT U BLD (test code = 3257) . Negative - Negative [facility] URINALYSIS W/O SPECIFIC [id number] 14:06:00 Test Item Value Reference Range Interpretation Comments POCT PH U (test code = 3254) . 5-8 POCT U LEUK EST (test code = 3263) . Negative - Negative POCT U NIT (test code = 3262) . Negative - Negative POCT U PROT (test code = 3259) trace Negative - Negative POCT U GLU (test code = 3256) neg Negative - Negative POCT U KETONE (test code = 3258) . Negative - Negative POCT U BLD (test code = 3257) . Negative - Negative [facility] SYPHILIS [id number] 16:03:00 Test Item Value Reference Range Interpretation Comments Syphilis IgG/IgM (test Non-reactive Non-reactive code = 08347-0) AUGIE (test code = AUGIE) Non-reactive - No serologic evidence of T. pallidum infection. Cannot exclude incubating or early syphilis. Submit a second specimen in 2-4 weeks if syphilis is clinically suspected. Equivocal - Further testing to follow. Reactive - Further testing to follow. Lab Interpretation (test Normal code = 12672-5) [facility]-AB WITH [id number] 06:17:00 Test Item Value Reference Range Interpretation Comments HIV Negative Negative Semi-quantitative (test code = 60000-4) AUGIE (test code = Non-reactive for HIV-1 AUGIE) antigen and HIV-1/HIV-2 antibodies. ?No laboratory evidence of HIV infection. ?Repeat in 2-4 weeks if acute HIV infection is suspected. [facility] SURFACE [id number] 05:00:00 Test Item Value Reference Range Interpretation Comments HBsAg Semi-Quantitative (test code = Negative Negative 5195-3) [facility] [id number] 04:38:00 Test Item Value Reference Range Interpretation Comments CoV-2 IgG (test code Negative Negative Negativ e result = 99013-8) does not rule o ut acute SARS-CoV- 2 infection. Clinical correlation as well as molecul ar diagnostic test are recommended to rule out acu te infection if clinically indicated. AUGIE (test code = AUGIE) This test has been approved by FDA for emergency use. Lab Interpretation Normal (test code = 97242-6) [facility] H[facility] POST [id number] 03:47:00 Test Item Value Reference Range Interpretation Comments GLUC 1 HR (test code = 2938543187) 120 mg/dL 120-170 Lab Interpretation (test code = Normal 62867-8) [facility] WITH [id number] 03:17:00 Test Item Value Reference Range Interpretation Comments WBC (test code = See_Comment [Automated 9981-2) message] The sy stem which generated this result transmitted reference range : 4.30 - 11.10 10*3/?L. The reference range was not used to interpret this result as normal/abnormal . RBC (test code = See_Comment [Automated 398-8) message] The sy stem which generated this result transmitted reference range : 3.93 - 5.25 10*6/?L. The reference range was not used to interpret this result as normal/abnormal . HGB (test code = 12.0 g/dL 11.6-15 718-7) HCT (test code = 35.6 % 35.7-45.2 L 4544-3) MCV (test code = 89.0 fL 80.6-95.5 787-2) MCH (test code = 30.0 pg 25.9-32.8 785-6) MCHC (test code = 33.7 g/dL 31.6-35.1 786-4) RDW-SD (test code = 37.2 fL 39-49.9 L 95667-9) RDW-CV (test code = 11.5 % 12-15.5 L 788-0) PLT (test code = See_Comment [Automated 777-3) message] The sy stem which generated this result transmitted reference range : 166 - 358 10*3/ ?L. The reference r giselle was not used to interpret this result as normal/abnormal . MPV (test code = 9.5 fL 9.5-12.9 05629-8) NRBC/100 WBC (test See_Comment [Automat ed code = 5822447066) message] The system which generated this result transmitted reference range : 0.0 - 10.0 /100 WBCs. The refer ence range was not u sed to interpret th is result as normal/abnormal . NRBC x10^3 (test code <0.01 See_Comment [Auto mated = 0122757885) message] The s ystem which generated this result transmitted reference range : 10*3/?L. The reference range was not used to interpret this result as normal/abnormal . GRAN MAT (NEUT) % 62.6 % (test code = 770-8) IMM GRAN % (test code 0.20 % = 6960017532) LYMPH % (test code = 30.0 % 736-9) MONO % (test code = 6.3 % 5905-5) EOS % (test code = 0.7 % 713-8) BASO % (test code = 0.2 % 706-2) GRAN MAT x10^3(ANC) 3.36 10*3/uL 1.88-7.09 (test code = 8148588163) IMM GRAN x10^3 (test <0.03 0-0.06 code = 1611749528) LYMPH x10^3 (test code 1.61 10*3/uL 1.32-3.29 = 731-0) MONO x10^3 (test code 0.34 10*3/uL 0.33-0.92 = 742-7) EOS x10^3 (test code = 0.04 10*3/uL 0.03-0.39 711-2) BASO x10^3 (test code <0.03 0.01-0.07 = 704-7) Lab Interpretation Abnormal (test code = 93246-7) [facility] [id number] 15:30:00 Test Item Value Reference Range Interpretation Comments POCT PREG (test code = 1605) Positive On board controls acceptable with C Yes Line (test code = 3574) POCT PREG LOT # (test code = 3575) POCT PREG TEST DATE (test code = 3576) [facility] URINALYSIS W/O SPECIFIC [id number] 15:30:00 Test Item Value Reference Range Interpretation Comments POCT PH U (test code = 3254) 8 mg/dl 5-8 POCT U LEUK EST (test code = trace Negative - Negative 3263) POCT U NIT (test code = 3262) pos Negative - Negative POCT U PROT (test code = 3259) trace Negative - Negative POCT U GLU (test code = 3256) neg Negative - Negative POCT U KETONE (test code = 3258) neg Negative - Negative POCT U BLD (test code = 3257) trace Negative - Negative Lab Interpretation (test code = Abnormal 08156-3) [facility] [id number] 15:30:00 Test Item Value Reference Range Interpretation Comments POCT PREG (test code = 1605) Positive On board controls acceptable with C Yes Line (test code = 3574) POCT PREG LOT # (test code = 3575) POCT PREG TEST DATE (test code = 3576) [facility] URINALYSIS W/O SPECIFIC [id number] 15:30:00 Test Item Value Reference Range Interpretation Comments POCT PH U (test code = 3254) 8 mg/dl 5-8 POCT U LEUK EST (test code = trace Negative - Negative 3263) POCT U NIT (test code = 3262) pos Negative - Negative POCT U PROT (test code = 3259) trace Negative - Negative POCT U GLU (test code = 3256) neg Negative - Negative POCT U KETONE (test code = 3258) neg Negative - Negative POCT U BLD (test code = 3257) trace Negative - Negative Lab Interpretation (test code = Abnormal 14801-2) [facility]
[2022-05-15 13:54] LABS: Urine Blood Trace-intact (Negative); Urine Glucose Negative (Negative); Urine Protein Negative (Negative); Urine Specific Gravity <=1.005 (1.005-1.030); Urine pH 5.5 (5.0-7.0)
[2022-05-15 14:15] LABS: Absolute Lymphocytes (CBC) 0.9 K/uL (0.7-4.9); Hematocrit 46.6 % (36.0-45.0); Lymphocytes % 18.4 % (15.3-44.8); MPV 7.4 fL (7.6-11.3); RBC Red Blood Cell Count 5.29 M/uL (3.86-4.86)
[2022-05-15 14:37] LABS: Magnesium 2.3 mg/dL (1.6-2.4); Potassium 3.6 mmol/L (3.5-5.1); Troponin High Sensitivity 3.8 pg/mL (<58.9)
--- NOTE | 2022-05-15 15:15 | RAD REPORT ---
EXAM DESCRIPTION: RAD - Chest Single View - 05/15/2022 3:05 pm CLINICAL HISTORY: Chest pain Chest pain. COMPARISON: No comparisons FINDINGS: Portable technique limits examination quality. The lungs are grossly clear. The heart is normal in size. No displaced fractures. IMPRESSION: No acute intrathoracic process suspected.
--- NOTE | 2022-05-15 15:30 | EDPHYS ---
Physician Documentation [facility] Name: Vandana Menjivar Age: 31 yrs Sex: Female : 1990 Arrival Date: 05/15/2022 Time: 13:23 Bed 18 Private MD: ED Physician Irwin Weinstein HPI: 05/15 15:24 This 31 yrs old Female presents to ER via Ambulatory with complaints of Chest rn Pain, Irregular Pulse. 15:24 This 31 yrs old Female presents to ER via Ambulatory with complaints of Chest rn Pain, palpitations. 15:25 The patient presents with a history of heart racing. Context: The symptoms occur at rn rest, with anxiety. Onset: The symptoms/episode began/occurred 2 month(s) ago. Duration: The patient or guardian reports multiple episodes, that are intermittent. Modifying factors: The symptoms are aggravated by anxiety, The symptoms are alleviated by nothing. Severity of symptoms: At their worst the symptoms were moderate in the emergency department the symptoms have improved. The patient has experienced similar episodes in the past. The patient has been recently seen by a physician:. Reports intermittent palpitations and chest pain for 2 months, seen by physician recently and had bloodwork performed, diagnosed with sinus tachycardia. . 15:25 Reports episodes of palpitations and sob. . 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 - Social history:: Smoking status: Patient denies any tobacco usage or history of. - Family history:: not pertinent. - Hospitalizations: : No recent hospitalization is reported. ROS: 15:25 Constitutional: Negative for fever, chills, and weight loss, Eyes: Negative for injury, rn pain, redness, and discharge, Neck: Negative for injury, pain, and swelling, Cardiovascular: Negative for edema Respiratory: Negative for cough, wheezing, and pleuritic chest pain, Abdomen/GI: Negative for abdominal pain, nausea, vomiting, diarrhea, and constipation, Back: Negative for injury and pain, MS/Extremity: Negative for injury and deformity, Skin: Negative for injury, rash, and discoloration, Neuro: Negative for headache, weakness, numbness, tingling, and seizure. Exam: 14:29 ECG was reviewed by the Attending Physician. rn 15:25 Constitutional: This is a well developed, well nourished patient who is awake, alert, rn and in no acute distress. Head/Face: Normocephalic, atraumatic. Cardiovascular: Regular rate and rhythm. No pulse deficits. Respiratory: No increased work of breathing, no retractions or nasal flaring. Abdomen/GI: Soft, non-tender Skin: Warm, dry MS/ Extremity: Pulses equal, no cyanosis Neuro: Awake and alert, GCS 15 Vital Signs: 14:02 BP 147 / 85; Pulse 81; Resp 17; Temp 98.8; Pulse Ox 100% ; Weight 57.61 kg; Height 5 ap3 ft. (152.40 cm); 15:16 BP 112 / 79; Pulse 77; Pulse Ox 99% on R/A; ap3 14:02 Body Mass Index 24.80 (57.61 kg, 152.40 cm) ap3 MDM: 13:28 Patient medically screened. rn 15:25 Differential diagnosis: arrythmia, dehydration, stress disorder. Data reviewed: vital rn signs, nurses notes, lab test result(s), EKG, radiologic studies, plain films, and as a result, I will discharge patient. Independent interpretation of the following test(s) in the Emergency Department EKG: See my EKG interpretation above X-Ray: My interpretation is CXR neg for ischemia. Counseling: I had a detailed discussion with the patient and/or guardian regarding: the historical points, exam findings, and any diagnostic results supporting the discharge/admit diagnosis, lab results, radiology results, the need for outpatient follow up, to return to the emergency department if symptoms worsen or persist or if there are any questions or concerns that arise at home. Special discussion: I discussed with the patient/guardian in detail that at this point there is no indication for admission to the hospital. It is understood, however, that if the symptoms persist or worsen the patient needs to return immediately for re-evaluation. Based on the history and exam findings, there is no indication for further emergent testing or inpatient evaluation. I discussed with the patient/guardian the need to see the grounds person for further evaluation of the symptoms. 15:30 ED course: Told patient most likely sinus tachycardia with possible anxiety, will f/u rn with cardiology for ECHO and holter and return precautions given. . 05/15 13:54 Order name: Urine Dipstick-Ancillary; Complete Time: 14:00 EDMS 05/15 14:00 Order name: Basic Metabolic Panel; Complete Time: 14:40 rn 05/15 14:00 Order name: CBC with Diff; Complete Time: 14:40 rn 05/15 14:00 Order name: D-Dimer; Complete Time: 14:40 rn 05/15 14:00 Order name: Magnesium; Complete Time: 14:40 rn 05/15 14:00 Order name: NT PRO-BNP; Complete Time: 14:40 rn 05/15 14:00 Order name: Urine Test (obtain specimen); Complete Time: 14:12 rn 05/15 14:00 Order name: Troponin HS; Complete Time: 14:40 rn 05/15 14:00 Order name: XRAY Chest (1 view); Complete Time: 15:24 rn 05/15 14:00 Order name: EKG; Complete Time: 14: rn 05/15 14:00 Order name: Cardiac monitoring; Complete Time: 14: rn 05/15 14:00 Order name: EKG - Nurse/Tech; Complete Time: 14: rn 05/15 14:00 Order name: IV Saline Lock; Complete Time: 14: rn 05/15 14:00 Order name: Labs collected and sent; Complete Time: 14: rn 05/15 14:00 Order name: O2 Per Protocol; Complete Time: 14: rn 05/15 14:00 Order name: O2 Sat Monitoring; Complete Time: 14:08 rn EC:29 Rate is 86 beats/min. Rhythm is regular. QRS [place] is Normal. ME interval is normal. QRS rn interval is normal. QT interval is normal. No Q waves. T waves are Normal. No ST changes noted. Clinical impression: Normal ECG. Interpreted by me. Reviewed by me. Administered Medications: No medications were administered Disposition Summary: 05/15/22 15:29 Discharge Ordered Location: Home rn Problem: an ongoing problem rn Symptoms: have improved rn Condition: Stable rn Diagnosis - Palpitations rn - Chest pain, unspecified rn Followup: rn - With: Private Physician - When: As needed - Reason: Recheck today's complaints, Re-evaluation by your physician Discharge Instructions: - Discharge Summary Sheet rn - Nonspecific Chest Pain, Adult rn - Palpitations rn Forms: - Medication Reconciliation Form rn - Thank You Letter rn - Antibiotic return clerk - Prescription Opioid Use rn Signatures: Dispatcher [employer] Irwin Hernandez MD MD rn Prokisch, Amanda, RN RN ap3
--- NOTE | 2022-05-15 15:30 | ER ---
Nurse's Notes [facility] Name: Vandana Menjivar Age: 31 yrs Sex: Female : 1990 Arrival Date: 05/15/2022 Time: 13:23 Bed 18 Private MD: Diagnosis: Palpitations;Chest pain, unspecified Presentation: 05/15 14:02 Chief complaint: Patient states: she feels like her heart is racing and she can't catch ap3 a breath. patient reports being evaluated by her pcp recently for 'sinus tachycardia'. Coronavirus screen: At this time, the client does not indicate any symptoms associated with coronavirus-19. Ebola Screen: No symptoms or risks identified at this time. Initial Sepsis Screen: Does the patient meet any 2 criteria? No. Patient's initial sepsis screen is negative. Does the patient have a suspected source of infection? No. Patient's initial sepsis screen is negative. Risk Assessment: Do you want to hurt yourself or someone else? Patient reports no desire to harm self or others. Onset of symptoms was February 2022. 14:02 Method Of Arrival: Ambulatory ap3 14:02 Acuity: TAMARA 3 ap3 Triage Assessment: 14:06 General: Appears in no apparent distress. Behavior is anxious. Pain: Denies pain. ap3 Neuro: No deficits noted. Level of Consciousness is awake, alert, obeys commands, Oriented to person, place, time, situation, Gait is steady, Speech is normal. Cardiovascular: Patient's skin is warm and dry. Rhythm is sinus tachycardia. Respiratory: Airway is patent Respiratory effort is even, unlabored, Respiratory pattern is regular, symmetrical. 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 - Social history:: Smoking status: Patient denies any tobacco usage or history of. - Family history:: not pertinent. - Hospitalizations: : No recent hospitalization is reported. Screenin:07 [facility] ED Fall Risk Assessment (Adult) History of falling in the last 3 months, ap3 including since admission No falls in past 3 months (0 pts). Abuse screen: Denies threats or abuse. Nutritional screening: No deficits noted. Tuberculosis screening: No symptoms or risk factors identified. Assessment: 14:08 Pain: Pain began gradually, over the last 2-3 months. ap3 14:08 Pain: Pain does not radiate. ap3 Vital Signs: 14:02 BP 147 / 85; Pulse 81; Resp 17; Temp 98.8; Pulse Ox 100% ; Weight 57.61 kg; Height 5 ap3 ft. (152.40 cm); 15:16 BP 112 / 79; Pulse 77; Pulse Ox 99% on R/A; ap3 14:02 Body Mass Index 24.80 (57.61 kg, 152.40 cm) ap3 ED Course: 13:23 Patient arrived in ED. as 13:28 Irwin Weinstein MD is Attending Physician. rn 14:02 Barbara Villarreal RN is Primary Nurse. ap3 14:05 Triage completed. ap3 14:07 Arm band placed on right wrist. EKG completed in triage. Results shown to MD. ap3 14:07 Patient has correct armband on for positive identification. Placed in gown. Bed in low ap3 position. Call light in reach. Side rails up X 1. conveyor monitor on. Pulse ox on. NIBP on. Door closed. Noise minimized. 14:07 Inserted saline lock: 20 gauge in right antecubital area, using aseptic technique. ap3 Blood collected. Patient maintains SpO2 saturation greater than 95% on room air. 15:07 XRAY Chest (1 view) In Process Unspecified. EDMS 15:44 No provider procedures requiring assistance completed. IV discontinued, intact, ap3 bleeding controlled, No redness/swelling at site. Pressure dressing applied. Administered Medications: No medications were administered Medication: 14:07 VIS not applicable for this client. ap3 Outcome: 15:29 Discharge ordered by . rn 15:44 Discharged to home ambulatory. ap3 15:44 Condition: good 15:44 Discharge instructions given to patient, Instructed on discharge instructions, follow up and referral plans. Demonstrated understanding of instructions, follow-up care. 15:53 Patient left the ED. ap3 Signatures: Dispatcher [employer] EDMS Anna Miguel as Weinstein, Irwin, MD MD rn Prokisch, Barbara, RN RN ap3
[2022-05-15 16:11] VITALS: TEMP 98.8
[2022-05-15 16:12] VITALS: BP 112/79; O2SAT 99
== END 2022-05-15 15:53 | disposition home or self-care (01) ==
LOC: ER 13:20
DX: R07.89 Other chest pain (principal); R00.2 Palpitations
CPT/HCPCS: 36415; 71045; 80048; 81003; 83735; 83880; 84484; 85025; 85379; 93005